=== PATIENT | female | born 1935 | race Caucasian/White ===

== ENCOUNTER 2020-07-08 15:06 | Emergency (ER) | payer MEDICARE ==
[2020-07-08 15:34] LABS: BASOPHILS # (AUTO) 0.1 10^3/uL (0.0-0.1); BASOPHILS % (AUTO) 0.8 %; EOSINOPHILS # (AUTO) 0.3 10^3/uL (0.0-0.7); EOSINOPHILS % (AUTO) 3.2 %; HGB - HEMOGLOBIN 13.6 g/dL (12.0-16.0); LYMPHOCYTES # (AUTO) 2.5 10^3/uL (1.5-3.5); LYMPHOCYTES % (AUTO) 31.9 %; MEAN CORPUSCULAR HEMOGLOBIN 32.3 pg (27.0-31.0); MEAN CORPUSCULAR HGB CONC 33.5 g/dL (32.0-36.0); MEAN CORPUSCULAR VOLUME 96.4 fL (81.0-99.0); MEAN PLATELET VOLUME 10.4 fL (7.9-10.8); MONOCYTES # (AUTO) 0.6 10^3/uL (0.0-1.0); NEUTROPHILS # (AUTO) 4.3 10^3/uL (1.5-6.6); PLT - PLATELET COUNT 192 10^3/uL (130-450); RED BLOOD COUNT 4.21 10^6/uL (4.20-5.40); RED CELL DISTRIBUTION WIDTH 12.8 % (12.0-15.0); WHITE BLOOD COUNT 7.7 x10^3/uL (4.8-10.8)
[2020-07-08 15:51] LABS: ALBUMIN 3.8 g/dL (3.2-5.5); BILIRUBIN,TOTAL 0.5 mg/dL (0.2-1.0); CALCIUM 9.4 mg/dL (8.5-10.3); CREATININE 0.7 mg/dL (0.4-1.0); TOTAL PROTEIN 7.7 g/dL (6.7-8.2)
[2020-07-08] MEDS ORDERED: atenoloL 25 MG TABLET PO STA (16:05)
--- NOTE | 2020-07-08 16:08 | XRAY Report ---
PROCEDURE: Chest 1 View X-Ray INDICATIONS: Chest Pain TECHNIQUE: One view of the chest was acquired. COMPARISON: FINDINGS: Surgical changes and devices: Surgical clips right breast area. Lungs and pleura: No pleural effusions or pneumothorax. Lungs are edematous. Mediastinum: Mediastinal contours appear normal. Heart size is at the upper limits of normal. Bones and chest wall: No suspicious bony lesions. Overlying soft tissues appear unremarkable. IMPRESSION: Mild pulmonary edema pattern however the inspiratory volume is reduced and this may simply represent crowding of the bronchovascular markings. Please correlate for presence of pulmonary edema in this pa tient. Note is made of surgical clips suggestive of prior right-sided breast carcinoma intervention. Reviewed by: Bravo Little MD on 07/08/2020 4:06 PM PDT Approved by: Bravo Little MD on 07/08/2020 4:06 PM PDT Station ID: [id number]
--- NOTE | 2020-07-08 16:08 | ED Physician Documentation ---
History of Present Illness - Stated complaint Stated Complaint: CHEST PX - Chief complaint Chief Complaint: Cardiac - Additonal information Additional information: 84-year-old female presents to the emergency department for evaluation of chest pain. She reports that the chest pain was sharp substernal and non-radiating. She denies that she has chest pain right now and is unsure of how long it lasted. She denies that with her episode of chest pain she is having any radiation of the pain, nausea, diaphoresis. She denies that we she was short of breath. Initially when she presented she was quite frustrated with the nursing staff, upset that her daughter forced her to come here. Denies syncope, leg swelling, abdominal pain, n/v/d. no dysuria She does have a history of hypertension. She takes atenolol 50 mg daily. She has not taken this a.m. dose. I do clay fairly elevated blood pressures here in the emergency department with a systolic of 220/80. Her daughter reports that she typically will have a blood pressure in the 1 90-200 systolic range. At some point in the past perhaps 5 or more years ago she did have a stress test completed through a cardiology group in [place]. Patient is unsure what those results were. Review of Systems Constitutional: denies: Fever Eyes: reports: Reviewed and negative Ears: reports: Reviewed and negative Nose: reports: Reviewed and negative Throat: reports: Reviewed and negative Cardiac: reports: Chest pain / pressure. 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 - Past Surgical History Past Surgical History: Yes /INSIDE SALES ADVERTISING EXECUTIVE: Mastectomy - Present Medications Home Medications: Ambulatory Orders Medication Instructions Recorded Confirmed Lisinopril [Prinivil] 10 mg PO DAILY #30 tablet 07/08/20 - Allergies Allergies/Adverse Reactions: Allergies Allergy/AdvReac Type Severity Reaction Status Date / Time No Known Drug Allergies Allergy Verified 07/08/20 15:27 - Social History Does the pt smoke?: No Smoking Status: Never smoker - Immunizations Immunizations are current?: Yes PD ED PE EXPANDED - General General: Alert, Anxious - HEENT HEENT: Atraumatic, PERRL - Neck Neck: Supple w/out meningeal sx, No tenderness. No: Stiff neck, Brudzinki's, JV D present, Adenopathy, Thyroid enlarged / mass - Cardiac Cardiac: Regular Rate, Regular Rhythm, Murmur Present (4/6 systolic murmur), Radial strong equal, Pedal strong equal, Cap refill < 2 sec - Respiratory Respiratory: Clear to ausultation flaquita. No: Distress, Labored - Abdomen Abdomen: Normal Bowel sounds. No: Tender to palpation - Extremities Extremities: Normal - Neuro Neuro: Alert and Oriented X 3, CNII-XII intact, Normal gait, Normal finger nose, Normal speech - GCS Eye Opening: Spontaneous Motor: Obeys Commands Verbal: Oriented Total: 15 - Psych Psych: Normal Results - Vitals Vitals: Vital Signs - 24 hr 07/08/20 07/08/20 07/08/20 15:28 16:00 16:30 Temperature 37.1 C Heart Rate 73 62 59 L Respiratory 18 23 18 Rate Blood Pressure 212/73 H 227/98 H 199/83 H O2 Saturation 100 97 98 Oxygen O2 Source Room air - EKG (time done) 1518 Rate: Rate (enter#) (69) Rhythm: NSR Intervals: Prolonged [place] QRS: LVH Ischemia: Non specific changes Other comments: Other comments (Qtc 433) Compare to prior EKG: Old EKG unavailable Computer interpretation: Agree with computer - Labs Labs: Laboratory Tests 07/08/20 07/08/20 07/08/20 15:28 15:28 15:28 WBC 7.7 RBC 4.21 Hgb 13.6 Hct 40.6 MCV 96.4 MCH 32.3 H MCHC 33.5 RDW 12.8 Plt Count 192 MPV 10.4 Neut # (Auto) 4.3 Lymph # (Auto) 2.5 [place] # (Auto) 0.6 Eos # (Auto) 0.3 Baso # (Auto) 0.1 Absolute Nucleated RBC 0.00 Nucleated RBC % 0.0 Sodium 138 Potassium 3.8 Chloride 102 Carbon Dioxide 26 Anion Gap 10.0 BUN 24 H Creatinine 0.7 Estimated GFR (MDRD) 80 L Glucose 134 H Calcium 9.4 Total Bilirubin 0.5 AST 18 ALT 15 Alkaline Phosphatase 68 Troponin I High Sens 10.7 B-Natriuretic Peptide Total Protein 7.7 Albumin 3.8 Globulin 3.9 Albumin/Globulin Ratio 1.0 Lipase 20 L TSH Urine Color Urine Clarity Urine pH Ur Specific [place] Urine Protein Urine Glucose (UA) Urine Ketones Urine Occult Blood Urine Nitrite Urine Bilirubin Urine Urobilinogen Ur Leukocyte Esterase Ur Microscopic Review Urine Culture Comments 07/08/20 07/08/20 07/08/20 15:28 15:28 15:51 WBC RBC Hgb Hct MCV MCH MCHC RDW Plt Count MPV Neut # (Auto) Lymph # (Auto) [place] # (Auto) Eos # (Auto) Baso # (Auto) Absolute Nucleated RBC Nucleated RBC % Sodium Potassium Chloride Carbon Dioxide Anion Gap BUN Creatinine Estimated GFR (MDRD) Glucose Calcium Total Bilirubin AST ALT Alkaline Phosphatase Troponin I High Sens B-Natriuretic Peptide 275 H Total Protein Albumin Globulin Albumin/Globulin Ratio Lipase TSH 2.13 Urine Color YELLOW Urine Clarity CLEAR Urine pH 6.5 Ur Specific [place] 1.010 Urine Protein NEGATIVE Urine Glucose (UA) NEGATIVE Urine Ketones NEGATIVE Urine Occult Blood NEGATIVE Urine Nitrite NEGATIVE Urine Bilirubin NEGATIVE Urine Urobilinogen 0.2 (NORMAL) Ur Leukocyte Esterase NEGATIVE Ur Microscopic Review NOT INDICATED Urine Culture Comments NOT INDICATED - Rads (name of study) CXR Radiology: Final report received (Mild pulmonary edema pattern however the inspiratory volume is reduced and this may simply represent crowding of the broncho-vascular markings.) PD MEDICAL DECISION MAKING - ED course Complexity details: reviewed results, re-evaluated patient, considered differ ential, d/w patient, d/w family ED course: 84-year-old female presents the emergency department for evaluation of substernal chest pain that developed earlier this morning. At the time of presentation to the emergency department she is pain-free. She has been quite resistant to remaining in the department, often getting upset and yelling at her daughter and threatening to the ER staff to leave. Her EKG was nonischemic. High-sensitivity troponin was negative. She was initially given aspirin here in the emergency department. We do note an elevated blood pressure. Her daughter reports that her systolic blood pressures are typically greater than 190 or 200. I have discussed this case at length with both the patient and the daughter. The patient is adamant that she will not remain in the hospital. Therefore I will add lisinopril to her blood pressure medication if she is only taking atenolol. I have also advised very close follow-up with a mobile paint specialist. Patient is to return to the emergency department for further evaluation if her symptoms worsen and she agreed to do so. Departure - Departure Disposition: Home, Self Care Clinical Impression: Chest pain Qualifiers: Chest pain type: unspecified Qualified Code(s): R07.9 - Chest pain, unspecified Hypertension Qualifiers: Hypertension type: essential hypertension Qualified Code(s): I10 - Essential (primary) hypertension Condition: Stable Record reviewed to determine appropriate education?: Yes Instructions: ED Heart Disease Risk Factors Follow-Up: Matt Jane DO [Primary Care Provider] - Within 3 Days Prescriptions: Lisinopril [Prinivil] 10 mg PO DAILY #30 tablet Comments: Crystal I hope that you are feeling better soon. Your EKG today did not show signs that you are having a heart attack. Your labs were also essentially normal. However with your history of high blood pressure you are at very high risk for heart disease or having a heart attack. I am starting you on a new medication to control your blood pressure, lisinopril. Please take this each night. It is very important that you follow-up with your primary doctor within the next 3 days to a week. If you develop chest pain again you must return to the emergency department.
[2020-07-08] MEDS ORDERED: ASPIRIN CHEW 81 MG TABLET PO STA (16:10)
[2020-07-08 16:19] LABS: BILIRUBIN,URINE NEGATIVE (NEGATIVE); GLUCOSE, URINE (UA) NEGATIVE (NEGATIVE); KETONES,URINE (UA) NEGATIVE (NEGATIVE); LEUKOCYTE ESTERASE, URINE NEGATIVE (NEGATIVE); NITRITE,URINE NEGATIVE (NEGATIVE); OCCULT BLOOD,URINE NEGATIVE (NEGATIVE); PH,URINE 6.5 PH (5.0-7.5); PROTEIN,URINE NEGATIVE (NEGATIVE); UROBILINOGEN,URINE 0.2 (NORMAL) E.U./dL (NORMAL)
[2020-07-08 16:22] LABS: CLARITY,URINE CLEAR (CLEAR)
[2020-07-08 17:30] VITALS: BP 200/125
[2020-07-08] MEDS ORDERED: lisinopriL 5 MG TABLET PO STA (17:31)
== END 2020-07-08 17:54 | disposition home or self-care (01) ==
LOC: ED 15:06
DX: R07.9 Chest pain, unspecified (principal); I10 Essential (primary) hypertension
CPT/HCPCS: 36415; 71045; 80053; 81003; 83690; 83880; 84443; 84484; 85025; 93005; 99284; A9270; 81001; 87086

== ENCOUNTER 2020-09-29 21:10 | Emergency (ER) | payer MEDICARE, OTHER ==
--- NOTE | 2020-09-29 22:10 | ED Physician Documentation ---
PD HPI CHEST PAIN - Stated complaint Stated Complaint: CHEST PX, HIGH BP - Chief complaint Chief Complaint: Cardiac - History obtained from History obtained from: Patient, Family - History of Present Illness Timing - onset: Today Timing - onset during: Rest Timing - duration: Hours Timing - details: Abrupt onset, Now resolved Quality: Pressure Location: Substernal, Left chest Worsened by: Exertion Similar symptoms before: Diagnosis (hypertension) Recently seen: Emergency Dept - Additional information Additional information: 85-year-old female with history of hypertension is on atenolol and lisinopril and she is recently been seen in the emerge department for a spike in her blood pressure and she was started on lisinopril at that time. She brings in her bottles of pill today and it indicates that she has not taken either of her medications for several days. Her daughter has given her her medications this evening prior to coming to the emergency department and the patient is currently asymptomatic and blood pressure is running much improved. The patient readily admits that she is having some difficulty remembering to take her medications and she has given into the daughter giving her her medications. Review of Systems Constitutional: denies: Fever Eyes: denies: Decreased vision Ears: denies: Ear pain Nose: denies: Congestion Throat: denies: Sore throat Cardiac: reports: Chest pain / pressure. 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 MACHINE TENDER: Mastectomy - Present Medications Home Medications: Ambulatory Orders Medication Instructions Recorded Confirmed Lisinopril [Prinivil] 10 mg PO DAILY #30 tablet 07/08/20 09/29/20 Atenolol [Tenormin] 50 mg PO DAILY 09/29/20 09/29/20 Nitrofurantoin [Macrobid] 100 mg PO BID #14 capsule 09/30/20 - Allergies Allergies/Adverse Reactions: Allergies Allergy/AdvReac Type Severity Reaction Status Date / Time soy Allergy Unknown Verified 09/29/20 21:46 - Social History Does the pt smoke?: No Smoking Status: Never smoker - Immunizations Immunizations are current?: Yes PD ED PE NORMAL - Vitals Vital signs reviewed: Yes (hypertensive mild) - General General: No acute distress, Well developed/nourished - HEENT HEENT: Atraumatic, PERRL, EOMI - Neck Neck: Supple, no meningeal sign, No bony TTP - Cardiac Cardiac: RRR, Other (1/6 holosystolic murmer at LSB) - Respiratory Respiratory: No respiratory distress, Clear bilaterally - Abdomen Abdomen: Soft, Non tender - Back Back: No CVA TTP, No spinal TTP - Derm Derm: Normal color, Warm and dry, No rash - Extremities Extremities: No deformity, No edema - Neuro Neuro: hot dip plater 2-12 intact, No motor deficit, No sensory deficit, Normal speech Eye Opening: Spontaneous Motor: Obeys Commands Verbal: Oriented GCS Score: 15 - Psych Psych: Normal mood, Normal affect Results - Vitals Vitals: Vital Signs - 24 hr 09/29/20 09/29/20 09/29/20 21:40 21:49 23:53 Temperature 36.4 C L 36 C L Heart Rate 90 89 62 Respiratory 12 21 23 Rate Blood Pressure 168/95 H 229/104 H O2 Saturation 97 98 09/30/20 01:55 Temperature Heart Rate 67 Respiratory Rate Blood Pressure 156/85 H O2 Saturation 98 Oxygen O2 Source Room air - EKG (time done) 2138 Rate: Rate (enter#) (90) Rhythm: LAE QRS: LVH Ischemia: ST depression (consistent with strain pattern with LVH) Compare to prior EKG: Changed from prior EKG (SPT 09-08-2020 the rate is faster and the strain pattern with LVH has developed ) Computer interpretation: Disagree with computer (The computer indicates poor R wave progression. There is an R wave in V1. ) - Labs Labs: Laboratory Tests 09/29/20 09/29/20 09/29/20 22:27 22:29 22:29 WBC 9.4 RBC 4.44 Hgb 14.4 Hct 43.0 MCV 96.8 MCH 32.4 H MCHC 33.5 RDW 12.8 Plt Count 198 MPV 10.7 Neut # (Auto) 6.2 Lymph # (Auto) 2.4 [place] # (Auto) 0.7 Eos # (Auto) 0.2 Baso # (Auto) 0.1 Absolute Nucleated RBC 0.00 Nucleated RBC % 0.0 Sodium 138 Potassium 3.6 Chloride 103 Carbon Dioxide 25 Anion Gap 10.0 BUN 24 H Creatinine 0.9 Estimated GFR (MDRD) 60 L Glucose 168 H Calcium 9.6 Total Bilirubin 0.6 AST 22 ALT 16 Alkaline Phosphatase 61 Troponin I High Sens B-Natriuretic Peptide Total Protein 7.9 Albumin 4.3 Globulin 3.6 Albumin/Globulin Ratio 1.2 Lipase 18 L Urine Color YELLOW Urine Clarity [place] Urine pH 5.0 Ur Specific [place] 1.020 Urine Protein TRACE Urine Glucose (UA) 100 H Urine Ketones NEGATIVE Urine Occult Blood TRACE-INTA Urine Nitrite NEGATIVE Urine Bilirubin NEGATIVE Urine Urobilinogen 0.2 (NORMAL) Ur Leukocyte Esterase SMALL H Urine RBC 0-5 Urine WBC 11-25 H Ur Squamous Epith Cells RARE Squamous Urine Bacteria Few Ur Microscopic Review INDICATED Urine Culture Comments INDICATED 09/29/20 09/29/20 09/30/20: 22: 00:40 WBC RBC Hgb Hct MCV MCH MCHC RDW Plt Count MPV Neut # (Auto) Lymph # (Auto) [place] # (Auto) Eos # (Auto) Baso # (Auto) Absolute Nucleated RBC Nucleated RBC % Sodium Potassium Chloride Carbon Dioxide Anion Gap BUN Creatinine Estimated GFR (MDRD) Glucose Calcium Total Bilirubin AST ALT Alkaline Phosphatase Troponin I High Sens 55.7 H* 151.3 H* B-Natriuretic Peptide 103 H Total Protein Albumin Globulin Albumin/Globulin Ratio Lipase Urine Color Urine Clarity Urine pH Ur Specific [place] Urine Protein Urine Glucose (UA) Urine Ketones Urine Occult Blood Urine Nitrite Urine Bilirubin Urine Urobilinogen Ur Leukocyte Esterase Urine RBC Urine WBC Ur Squamous Epith Cells Urine Bacteria Ur Microscopic Review Urine Culture Comments - Rads (name of study) chest Radiology: Prelim report reviewed (Impression: No focal consolidation or CHF. There is increased opacity in the right paratracheal region that may be incid ental but is not definitely seen previously and technically indeterminate. Recommend further evaluation or short-term follow-up.), EMP read indepedently, See rad report Procedures - IVC sono (time) 2200 Bedside IVC sono: IVC measures (cm) (0.90), IVC collapsed c insp (cm) (complete), Dehydration (est 1-2 liter deficit) PD MEDICAL DECISION MAKING - ED course Complexity details: d/w family (The patient's daughter specifically indicates that she was given her lisinopril tonight and she was not given her Atenolol from earlier in the day.) ED course: 85-year-old female who has been noncompliant with her blood pressure medications comes to the emergency department today with a spike in her blood pressure and chest pain. She has a pattern of strain with LVH on her electrocardiogram and she is administered the missing dose of Atenolol 50 mg. This patient's chest pain lasted about 1-1/2 hours resolved about the time she arrived to the hospital and has not recurred since she has been here in the emergency department. Chest x-ray was obtained and demonstrated an opacity in the right paratracheal region and recommendation was to have further investigation or short-term follow-up. I offered to do a chest CT of the patient and she refused. She wanted to sign out AGAINST MEDICAL ADVICE at that point. I did indicate to her that her troponin was mildly elevated and this value should be checked a second time. She was reluctant to allow this as well but we were able to get the patient's daughter to come back to the emergency department despite our Covid restrictions. The patient has decided that she would like to go home despite the fact that she has rising troponin indicating some damage. Clinically the patient looks well and is not having symptoms and the clinical etiology for her troponin elevation is present. She has been noncompliant with her blood pressure medications and has had a spike in her blood pressure. Her daughter will be administering her blood pressure medications now. I did ask Dr. De La Fuente to come talk to the patient about benefits of hospitalization. After a long discussion with the patient and her daughter the patient will still go home. She appears competent to make this decision. There is an additional finding on CT that would normally be followed up and the patient has refused imaging. She has UTI by urinalysis and no symptoms. Her urine did make the grade for culture and she is given a script for macrobid and will follow up with the results of the culture to determine if treatment is indicated. Departure - Departure Disposition: 01 Home, Self Care Clinical Impression: Hypertensive urgency, NSTEMI (non-ST elevated myocardial infarction) Urinary tract infection Qualifiers: Urinary tract infection type: acute cystitis Hematuria presence: without hematuria Qualified Code(s): N30.00 - Acute cystitis without hematuria Condition: Stable Instructions: Back Home, Beta-Blockers, ED Hypertension Conf Out Of Control, ED UTI Cystitis Female Follow-Up: Matt Jane, DO [Provider Admit Priv/Credential] - Prescriptions: Nitrofurantoin [Macrobid] 100 mg PO BID #14 capsule Comments: Today it appears that your blood pressure was extremely elevated causing a bit of damage to your heart. It is important to take your blood pressure medicat ions regularly and not miss doses. Make certain you take your regular dose tomorrow.If you develop any new or different symptoms and request any treatment we are here 24 hours a day every day.
[2020-09-29] MEDS ORDERED: SODIUM CHLORIDE 0.9% 1,000 ML IV STA (22:14)
[2020-09-29 22:31] LABS: BILIRUBIN,URINE NEGATIVE (NEGATIVE); GLUCOSE, URINE (UA) 100 mg/dL (NEGATIVE); KETONES,URINE (UA) NEGATIVE (NEGATIVE); LEUKOCYTE ESTERASE, URINE SMALL (NEGATIVE); NITRITE,URINE NEGATIVE (NEGATIVE); OCCULT BLOOD,URINE TRACE-INTA (NEGATIVE); PROTEIN,URINE TRACE mg/dL (NEGATIVE); UROBILINOGEN,URINE 0.2 (NORMAL) E.U./dL (NORMAL)
[2020-09-29 22:37] LABS: CLARITY,URINE HAZY (CLEAR)
[2020-09-29 22:48] LABS: BACTERIA,URINE Few /HPF (None Seen); RBC,URINE 0-5 /HPF (0-5); SQUAMOUS EPITHELIAL CELL,UR RARE Squamous (<= Few)
[2020-09-29 22:53] LABS: BASOPHILS # (AUTO) 0.1 10^3/uL (0.0-0.1); BASOPHILS % (AUTO) 0.6 %; EOSINOPHILS # (AUTO) 0.2 10^3/uL (0.0-0.7); EOSINOPHILS % (AUTO) 1.7 %; HGB - HEMOGLOBIN 14.4 g/dL (12.0-16.0); LYMPHOCYTES # (AUTO) 2.4 10^3/uL (1.5-3.5); LYMPHOCYTES % (AUTO) 25.2 %; MEAN CORPUSCULAR HEMOGLOBIN 32.4 pg (27.0-31.0); MEAN CORPUSCULAR HGB CONC 33.5 g/dL (32.0-36.0); MEAN CORPUSCULAR VOLUME 96.8 fL (81.0-99.0); MEAN PLATELET VOLUME 10.7 fL (7.9-10.8); MONOCYTES # (AUTO) 0.7 10^3/uL (0.0-1.0); NEUTROPHILS # (AUTO) 6.2 10^3/uL (1.5-6.6); NEUTROPHILS % (AUTO) 65.4 %; PLT - PLATELET COUNT 198 10^3/uL (130-450); RED BLOOD COUNT 4.44 10^6/uL (4.20-5.40); RED CELL DISTRIBUTION WIDTH 12.8 % (12.0-15.0); WHITE BLOOD COUNT 9.4 x10^3/uL (4.8-10.8)
[2020-09-29 23:06] LABS: ALBUMIN 4.3 g/dL (3.2-5.5); ALBUMIN/GLOBULIN RATIO 1.2 (1.0-2.2); BILIRUBIN,TOTAL 0.6 mg/dL (0.2-1.0); CALCIUM 9.6 mg/dL (8.5-10.3); CREATININE 0.9 mg/dL (0.4-1.0); POTASSIUM 3.6 mmol/L (3.5-5.0); TOTAL PROTEIN 7.9 g/dL (6.7-8.2)
[2020-09-29] MEDS ORDERED: IOVERSOL 320 100 ML VIAL IVP ONE (23:18)
[2020-09-30 01:56] VITALS: BP 156/85
--- NOTE | 2020-09-30 08:22 | XRAY Report ---
PROCEDURE: Chest 1 View X-Ray INDICATIONS: chest pain TECHNIQUE: One view of the chest was acquired. COMPARISON: 07/08/2020 FINDINGS: Surgical changes and devices: Surgical clips are again seen in right axilla and right breast. Lungs and pleura: No pleural effusions or pneumothorax. Increased opacity in right paratracheal skyler on is seen slightly more prominent compared to previous study. Increased bronchovascular markings in the right perihilar region is also noted. Left lung is clear. Mediastinum: Mediastinal contours appear normal. Heart size is enlarged. Bones and chest wall: No suspicious bony lesions. Overlying soft tissues appear unremarkable. IMPRESSION: Increased opacity in the right perihilar/supraclavicular region and appears slightly more prominent c ompared to previous study. A right upper lobe infiltrate versus neoplastic process cannot be excluded . Consider CT of chest for further evaluation of this region as an outpatient. Reviewed by: Jez Chance MD on 09/30/2020 8:21 AM PST Approved by: Jez Chance MD on 09/30/2020 8:21 AM PST Station ID: [id number]
--- NOTE | 2020-10-01 00:01 | ADVANCE CARE PLANNING NOTE ---
Advance Care Planning - Planning Encounter Date: 09/30/20 Time: 02:00 Purpose: establish care goals in face of positive troponins Parties in Attendance: Daughter, patient and hospitalist Decisional Capacity of the Patient: alert, oriented and daughter reluctantly endorses normal mentation - Encounter Subjective/Patient's Story: She is an 85-year-old white female who survived breast cancer after undergoing mastectomy. She also has high blood pressure and high cholesterol. She lives with her daughter, and daughter's children. She describes her life with them as a very good life. She loves them very much. She has daily encounters with her grandchildren that she finds fulfilling and enjoyable. She has lived with her daughter for quite some time now. She denies being depressed. She is able to do her activities of daily living. She dresses herself, feed herself, and does not use any durable medical equipment. She describes a life that is satisfying to her. She likes seeing her friends, and looks forward to seeing her grandson, Sergey, get to his girlfriend Dwaine. She thinks Dwaine is the best thing that happened to the family in quite some time and, to top it off, she makes a wonderful banana bread. She is responsible for taking her own medications. For the last few months, she will forget to take her pills. She does not feel like she is losing her memory. She just "gets lazy". She denies being suicidal, depressed, sad. She has a good appetite. Denies feeling poorly. She was seen for chest pain in July 2020. This was in our emergency room. She had forgotten to take her blood pressure pills and came in with chest pain and a markedly elevated blood pressure. She had a previous history of a stress test done through cardiology group in [place] about 2014 which was negative. At that point in time she was reluctantly willing to undergo evaluation but did not want to be there. She was described as yelling at her daughter back then. Troponins were 10.7 with the elevated blood pressure. Patient was adamant she did not want to be in the hospital and she went home. She now returns tonight with the same problem. She has not been taking her medications for no real reason other than "laziness". She had an abrupt onset of chest pain. It was substernal and on the left side. Made worse by walking around. She took her blood pressure pills, and an old bottle of aspirin was available so she took an old aspirin. By the time she got to the emergency room she was pain-free. This time her troponins are elevated. She was 55.7 in the next 1 was 151.3. She is adamant that she does not want to be in the hospital. Which then led to Dr. Mosquera having me come speak to the patient to give a second opinion. She states that she is 85 years old and that she really does not want to undergo any types of procedures. As such she sees no point in coming into the hospital. Daughter is upset. Almost in tears. Tells mom that she would really like her to come to the hospital to make sure she is not having a heart attack. The patient points out that even if she was she would not undergo stress test, angiogram, or bypass surgery or stenting. She feels that she is lived a good life. She loves her family and grandchildren but does not feel that undergoing procedures to live a longer life is worth it. Daughter points out that she has relatives that are in their 90s, and even her best friend, Yandel, had cardiac intervention and is living a fulfilling life. The patient is not swayed. She states that that is all well in good but that that has not applied to her. We then went into conversations about what other things that she would not want done. I postulated that if she had pneumonia and she needed oxygen and antibiotics for that, which she come in? The answer was no. If she fell and broke her hip, which she come in? She states no. She wants to focus on comfort measures only. She wants to stay at home if she ever were to get sick enough to . 40 minutes was spent in a long conversation establishing her philosophy. Unfortunately her daughter is in disagreement with her. Is in tears. Wishes that mom would reconsider. Objective/Medical Story: 85-year-old white female who has hypertension, hyperlipidemia, and is noncompliant with medications. Presents with a second episode of angina similar to her previous episode from July 2020. She will get elevated blood pressure, chest pain, and once that the pressure is down, chest pain resolves. The difference from this episode to the last episode is a rise in troponins. EKG is negative. The patient is now symptom-free in the emergency room. Blood pressure is 156/85. Afebrile. 98% on room air. She is an alert, oriented, elderly female in no acute distress. Exam is essentially negative for cardiopulmonary problems. Emergency room physician is recommending observation status for rule out OH. Patient is declining. Goals of Care: 1. To never be hospitalized as an observation or inpatient. She does not want surgeries, intubations, any type of procedures. 2. To at home. Plan: 1. We discussed DNR status and she wants to be DO NOT RESUSCITATE DO NOT INTUBATE. 2. I have asked her, for consideration of her children's emotional wellbeing, to have a discussion with all family members. She has 3 children total. All of them should be aware of her philosophical desires. What is the practical ways that they can make this happen to honor their mother but also not be overwhelmed at the moment of her . As such she promises to sit down and have those conversations with her kids. Figure out if she should be in palliative care. She is not a candidate for hospice. 3. Let her primary care provider know that she feels this way Code Status: Do Not Attempt Resuscitation Time spent on advance care plannin minutes
== END 2020-09-30 02:21 | disposition home or self-care (01) ==
LOC: ED 21:10
DX: I21.4 Non-ST elevation (NSTEMI) myocardial infarction (principal); I16.0 Hypertensive urgency; T46.4X6A Underdosing of angiotensin-converting-enzyme inhibitors, initial encounter; T44.7X6A Underdosing of beta-adrenoreceptor antagonists, initial encounter; Z91.138 Patient's unintentional underdosing of medication regimen for other reason; Y92.009 Unspecified place in unspecified non-institutional (private) residence as the place of occurrence of the external cause; N30.00 Acute cystitis without hematuria; E86.0 Dehydration; R93.89 Abnormal findings on diagnostic imaging of other specified body structures; R01.1 Cardiac murmur, unspecified; E78.5 Hyperlipidemia, unspecified; Z08 Encounter for follow-up examination after completed treatment for malignant neoplasm; Z85.3 Personal history of malignant neoplasm of breast; Z53.29 Procedure and treatment not carried out because of patient's decision for other reasons; Z66 Do not resuscitate
CPT/HCPCS: 36415; 80053; 81001; 81003; 83690; 83880; 84484; 85025; 87086; 93005; 96360; 99284

== ENCOUNTER 2020-10-01 12:25 | Outpatient (CLI) | payer MEDICARE, OTHER | END 2020-10-01 23:59 | disposition home or self-care (01) | LOC: LAB.N 12:25 | PROVIDERS: ATTEND Family Medicine | DX: R10.9 Unspecified abdominal pain (principal) | CPT/HCPCS: 87086 ==

== ENCOUNTER 2020-10-05 16:04 | Emergency (ER) | payer MEDICARE, OTHER ==
--- NOTE | 2020-10-05 16:47 | ED Physician Documentation ---
PD HPI BACK PAIN - Stated complaint Stated Complaint: BACK PX - Chief complaint Chief Complaint: Back Pain - History obtained from History obtained from: Patient, Family - Additional information Additional information: 85-year-old woman with history of hypertension has had about a weeks worth of right flank pain and right lateral abdominal pain, otherwise not lateralizing. She was diagnosed with UTI, culture grew antimicrobial polymicrobial growth. No improvement with antibiotics. Pain worse today. No injury. 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 AND SOIL SCIENTIST: Mastectomy - Present Medications Home Medications: Ambulatory Orders Medication Instructions Recorded Confirmed Lisinopril [Prinivil] 10 mg PO DAILY #30 tablet 07/08/20 09/29/20 Atenolol [Tenormin] 50 mg PO DAILY 09/29/20 09/29/20 Nitrofurantoin [Macrobid] 100 mg PO BID #14 capsule 09/30/20 Gabapentin [Neurontin] 100 mg PO TID PRN #60 tab 10/05/20 predniSONE [Deltasone] 20 mg PO [id number] #21 tab 10/05/20 - Allergies Allergies/Adverse Reactions: Allergies Allergy/AdvReac Type Severity Reaction Status Date / Time soy Allergy Unknown Verified 10/05/20 16:26 - Social History Does the pt smoke?: No Smoking Status: Never smoker Does the pt drink ETOH?: No Does the pt have substance abuse?: No - Immunizations Immunizations are current?: Yes PD ED PE NORMAL - Vitals Vital signs reviewed: Yes - General General: Alert and oriented X 3, No acute distress - HEENT HEENT: PERRL, EOMI - Neck Neck: Supple, no meningeal sign, No bony TTP - Cardiac Cardiac: RRR, No murmur - Respiratory Respiratory: No respiratory distress, Clear bilaterally - Abdomen Abdomen: Non tender - Extremities Extremities: Other (Pain is not reproducible with palpation of the flank, midline spine, ribs, or pelvis.) - Neuro Neuro: Alert and oriented X 3, Normal speech Results - Vitals Vitals: Vital Signs - 24 hr 10/05/20 10/05/20 10/05/20 16:21 19:43 20:15 Temperature 36.1 C L 36.4 C L 36.9 C Heart Rate 56 L 52 L 55 L Respiratory 16 16 14 Rate Blood Pressure 219/94 H 217/76 H 217/76 H O2 Saturation 93 99 98 Oxygen O2 Source Room air - Labs Labs: Laboratory Tests 10/05/20 10/05/20 10/05/20 17:00 17:00 19:29 WBC 9.1 RBC 4.56 Hgb 14.6 Hct 43.8 MCV 96.1 MCH 32.0 H MCHC 33.3 RDW 12.9 Plt Count 209 MPV 10.5 Neut # (Auto) 6.0 Lymph # (Auto) 2.3 [place] # (Auto) 0.6 Eos # (Auto) 0.2 Baso # (Auto) 0.1 Absolute Nucleated RBC 0.00 Nucleated RBC % 0.0 Sodium 137 Potassium 4.0 Chloride 99 L Carbon Dioxide 28 Anion Gap 10.0 BUN 25 H Creatinine 0.7 Estimated GFR (MDRD) 80 L Glucose 145 H Calcium 10.7 H Total Bilirubin 0.7 AST 20 ALT 15 Alkaline Phosphatase 67 Total Protein 8.6 H Albumin 4.5 Globulin 4.1 Albumin/Globulin Ratio 1.1 Lipase 18 L Urine Color YELLOW Urine Clarity CLEAR Urine pH 6.5 Ur Specific [place] <=1.005 Urine Protein NEGATIVE Urine Glucose (UA) NEGATIVE Urine Ketones NEGATIVE Urine Occult Blood NEGATIVE Urine Nitrite NEGATIVE Urine Bilirubin NEGATIVE Urine Urobilinogen 0.2 (NORMAL) Ur Leukocyte Esterase NEGATIVE Ur Microscopic Review NOT INDICATED Urine Culture Comments NOT INDICATED - Rads (name of study) CT angiography of the abdomen pelvis with IV contrast Radiology: EMP read contemporaneously (Moderate calcified atherosclerotic plaque without dissection or aneurysm. No kidney stones or hydronephrosis. She has diverticulosis. Advanced DDD at L1-L2 without compression fracture. Scoliosis. Degenerative hip disease.) PD MEDICAL DECISION MAKING - ED course ED course: 85-year-old woman with right flank pain, previous diagnosis of UTI but clear UA today and no improvement on antibiotics. Given her age the differential diagnosis would also include vascular emergencies, renal colic, or simple low back pain. Work-up demonstrates severe degenerative disc disease L1-L2 which may be causative. The remainder of her work-up was negative. Departure - Departure Disposition: 01 Home, Self Care Clinical Impression: Back pain Qualifiers: Back pain location: low back pain Chronicity: acute Back pain laterality: right Sciatica presence: without sciatica Qualified Code(s): M54.5 - Low back pain Condition: Good Record reviewed to determine appropriate education?: Yes Instructions: ED Neck Back Pain General Prescriptions: predniSONE [Deltasone] 20 mg PO [id number] #21 tab Gabapentin [Neurontin] 100 mg PO TID PRN #60 tab PRN Reason: back pain Comments: Followup with Dr Lucinda SALGUERO. Return if worse Do not drink or drive with gabapentin CT showing severe Degenerative disc disease at L1-L2 Discharge Date/Time: 10/05/20 20:15
[2020-10-05 17:13] LABS: BASOPHILS # (AUTO) 0.1 10^3/uL (0.0-0.1); BASOPHILS % (AUTO) 0.7 %; EOSINOPHILS # (AUTO) 0.2 10^3/uL (0.0-0.7); EOSINOPHILS % (AUTO) 1.8 %; HCT - HEMATOCRIT 43.8 % (37.0-47.0); HGB - HEMOGLOBIN 14.6 g/dL (12.0-16.0); LYMPHOCYTES # (AUTO) 2.3 10^3/uL (1.5-3.5); MEAN CORPUSCULAR HGB CONC 33.3 g/dL (32.0-36.0); MEAN CORPUSCULAR VOLUME 96.1 fL (81.0-99.0); MEAN PLATELET VOLUME 10.5 fL (7.9-10.8); MONOCYTES # (AUTO) 0.6 10^3/uL (0.0-1.0); MONOCYTES % (AUTO) 6.6 %; NEUTROPHILS % (AUTO) 65.7 %; PLT - PLATELET COUNT 209 10^3/uL (130-450); RED BLOOD COUNT 4.56 10^6/uL (4.20-5.40); RED CELL DISTRIBUTION WIDTH 12.9 % (12.0-15.0); WHITE BLOOD COUNT 9.1 x10^3/uL (4.8-10.8)
[2020-10-05] MEDS ORDERED: IOVERSOL 320 100 ML VIAL IVP ONE ×2 (17:18→18:21)
[2020-10-05 17:23] LABS: ALBUMIN 4.5 g/dL (3.2-5.5); ALBUMIN/GLOBULIN RATIO 1.1 (1.0-2.2); BILIRUBIN,TOTAL 0.7 mg/dL (0.2-1.0); CALCIUM 10.7 mg/dL (8.5-10.3); CREATININE 0.7 mg/dL (0.4-1.0); TOTAL PROTEIN 8.6 g/dL (6.7-8.2)
--- NOTE | 2020-10-05 18:41 | CT Report ---
PROCEDURE: ANGIO ABDOMEN/PELVIS W INDICATIONS: R flank pain CONTRAST: IV CONTRAST: Optiray 320 ml: 100 cc TECHNIQUE: After the administration of intravenous contrast, 2 and 5 mm sections acquired from the diaphragm to the iliac crests. 3-dimensional maximum intensity projection (MIP) coronal and sagittal reformats, a nd/or 3-dimensional volume rendering reformatting was then performed. For radiation dose reduction, the following was used: automated exposure control, adjustment of mA and/or kV according to patient size. COMPARISON: CXR 09/29/2020. FINDINGS: Image quality: Excellent. Extravascular tissues: Minimal atelectasis at the right lung base. No pleural effusion. Right mastect joana. Heart size is within normal limits. Small hiatal hernia. Liver and spleen are normal in size. Well-circumscribed hepatic hypodensities are most compatible wit h benign cysts. Gallbladder is unremarkable. Biliary system is non dilated. Pancreas is atrophic a ppearing. No adrenal nodules. Kidneys are normal in size and enhancement, without hydronephrosis. N o kidney stones seen. Left kidney cortical hypodensity which is too small to further progress. Non-opacified bowel loops demonstrate normal wall thickness and caliber. Diverticulosis. The appendix is normal in caliber, (4/59). No contrast extravasation seen. No free fluid or air. No retroperiton eal or mesenteric adenopathy. No ventral hernias. Suspect small calcified fibroids. Pelvic floor lax ity. No suspicious bony abnormalities. Advanced degenerative DDD at L1-L2. No vertebral body guillaume nitesh fractures. Scoliosis. Advanced degenerative change of the hip joints. Abdominal aorta: Minimal ectasia. Moderate calcified metastatic plaque. No aneurysm or dissection. Mesenteric arteries: Mild calcified plaque in the celiac artery. Moderate plaque in the splenic carmen ry. Mild plaque near the origin of the SMA. No filling defects identified. Calcified plaque in the IM A. Renal arteries: Patent. Moderate plaque at the origin of the left renal artery. IMPRESSION: No acute abnormality demonstrated to explain the patient's right flank pain. No free fluid. Overall moderate calcified arthroscopic plaque. Celiac and SMA are patent. Calcified plaque in the pr oximal BRETT which is patent distally. No small bowel obstruction. No kidney stones identified. No hydronephrosis. Reviewed by: William Orosco MD on 10/05/2020 5:39 PM [facility] Approved by: William Orosco MD on 10/05/2020 5:39 PM [facility] Station ID: [id number]
[2020-10-05] MEDS ORDERED: predniSONE 20 MG TABLET PO STA (19:03)
[2020-10-05] MEDS ORDERED: GABAPENTIN 100 MG CAPSULE PO STA (19:03)
[2020-10-05 19:39] LABS: BILIRUBIN,URINE NEGATIVE (NEGATIVE); GLUCOSE, URINE (UA) NEGATIVE (NEGATIVE); KETONES,URINE (UA) NEGATIVE (NEGATIVE); LEUKOCYTE ESTERASE, URINE NEGATIVE (NEGATIVE); NITRITE,URINE NEGATIVE (NEGATIVE); OCCULT BLOOD,URINE NEGATIVE (NEGATIVE); PH,URINE 6.5 PH (5.0-7.5); PROTEIN,URINE NEGATIVE (NEGATIVE); UROBILINOGEN,URINE 0.2 (NORMAL) E.U./dL (NORMAL)
[2020-10-05 19:44] VITALS: BP 217/76
[2020-10-05 19:52] LABS: CLARITY,URINE CLEAR (CLEAR)
== END 2020-10-05 20:15 | disposition home or self-care (01) ==
LOC: ED 16:04
DX: M54.5 Low back pain (principal)
CPT/HCPCS: 36415; 74174; 80053; 81003; 83690; 85025; 99283; 99284; A9270; J7512; Q9967; 81001; 87086

== ENCOUNTER 2020-10-27 12:04 | Outpatient (CLI) | payer MEDICARE, OTHER | END 2020-10-27 12:05 | disposition home or self-care (01) | LOC: DI 12:04 | PROVIDERS: ATTEND Family Medicine | DX: I21.4 Non-ST elevation (NSTEMI) myocardial infarction (principal); I35.0 Nonrheumatic aortic (valve) stenosis | CPT/HCPCS: 93306 ==

== ENCOUNTER 2020-11-19 12:06 | Outpatient (CLI) | payer MEDICARE, OTHER ==
--- NOTE | 2020-11-20 11:03 | Nuclear Medicine Report ---
PROCEDURE: Rest and exercise myocardial perfusion SPECT with gated imaging and ejection fraction INDICATIONS: NSTEMI RADIOPHARMACEUTICAL: 12.4 mCi Tc-99m Myoview IV TECHNIQUE: Radiopharmaceutical was injected, but patient could not comply with further imaging secon barbie to comfort/positioning factors COMPARISON: None available. IMPRESSION: Following radiotracer injection, patient could not comply with further imaging Reviewed by: Alexus Chatman MD on 11/20/2020 11:01 AM PST Approved by: Alexus Chatman MD on 11/20/2020 11:01 AM PST Station ID: [id number]
== END 2020-11-19 12:07 | disposition home or self-care (01) ==
LOC: DI 12:06
PROVIDERS: ATTEND Family Medicine
DX: R07.9 Chest pain, unspecified (principal)
CPT/HCPCS: 78452; 93017; A9500

== ENCOUNTER 2020-11-28 13:46 | Outpatient (CLI) | payer MEDICARE, OTHER ==
--- NOTE | 2020-11-28 14:41 | XRAY Report ---
PROCEDURE: Lumbar Spine 2 View INDICATIONS: LUMBAR PAIN TECHNIQUE: 3 views of the lumbar spine were acquired. COMPARISON: None. FINDINGS: Bones: 5 [id number] vertebrae are present. There is moderate leftward curvature of the upper l umbar spine. Mild grade 1 anterolisthesis of L4 on L5. Multilevel disc space narrowing, endplate oste ophyte formation, and facet hypertrophy. No vertebral body compression fractures. No suspicious bony lesions. Soft tissues: Overlying bowel gas pattern is normal. No suspicious soft tissue calcifications. IMPRESSION: Multilevel degenerative disc and facet disease. No acute fracture. No osseous lesion. If symptoms and/or clinical suspicion for pathology continue, further assessment with repeat plain film s, or advanced imaging (e.g., CT, MRI, or bone scan) is recommended for further assessment. Reviewed by: Alexus Chatman MD on 11/28/2020 1:40 PM [facility] Approved by: Alexus Chatman MD on 11/28/2020 1:40 PM [facility] Station ID: [id number]
== END 2020-11-28 13:47 | disposition home or self-care (01) ==
LOC: DI.N 13:46
PROVIDERS: ATTEND Family Medicine
DX: M51.36 Other intervertebral disc degeneration, lumbar region (principal); M47.816 Spondylosis without myelopathy or radiculopathy, lumbar region; M43.16 Spondylolisthesis, lumbar region

== ENCOUNTER 2021-08-11 02:48 | Outpatient (CLI) | payer MEDICARE, OTHER | END 2021-08-11 02:49 | disposition EMS.NT | LOC: EMS 02:48 | DX: R07.9 Chest pain, unspecified (principal) | CPT/HCPCS: A0425; A0429 ==

== ENCOUNTER 2021-08-11 03:06 | Emergency (ER) | payer MEDICARE, OTHER ==
[2021-08-11] MEDS ORDERED: ASPIRIN CHEW 81 MG TABLET PO STA (03:15)
[2021-08-11 03:50] LABS: BASOPHILS # (AUTO) 0.1 10^3/uL (0.0-0.1); BASOPHILS % (AUTO) 0.8 %; EOSINOPHILS # (AUTO) 0.2 10^3/uL (0.0-0.7); EOSINOPHILS % (AUTO) 2.9 %; HCT - HEMATOCRIT 39.9 % (37.0-47.0); HGB - HEMOGLOBIN 13.3 g/dL (12.0-16.0); LYMPHOCYTES # (AUTO) 2.4 10^3/uL (1.5-3.5); LYMPHOCYTES % (AUTO) 30.5 %; MEAN CORPUSCULAR HEMOGLOBIN 32.1 pg (27.0-31.0); MEAN CORPUSCULAR HGB CONC 33.3 g/dL (32.0-36.0); MEAN CORPUSCULAR VOLUME 96.4 fL (81.0-99.0); MEAN PLATELET VOLUME 10.8 fL (7.9-10.8); MONOCYTES # (AUTO) 0.6 10^3/uL (0.0-1.0); NEUTROPHILS # (AUTO) 4.5 10^3/uL (1.5-6.6); NEUTROPHILS % (AUTO) 57.4 %; PLT - PLATELET COUNT 193 10^3/uL (130-450); RED BLOOD COUNT 4.14 10^6/uL (4.20-5.40); RED CELL DISTRIBUTION WIDTH 12.7 % (12.0-15.0); WHITE BLOOD COUNT 7.9 x10^3/uL (4.8-10.8)
[2021-08-11 03:55] LABS: PT - PROTHROMBIN TIME 11.4 secs (9.9-12.6)
[2021-08-11 04:02] LABS: ALBUMIN 3.8 g/dL (3.2-5.5); ALBUMIN/GLOBULIN RATIO 1.1 (1.0-2.2); BILIRUBIN,TOTAL 0.5 mg/dL (0.2-1.0); CALCIUM 9.5 mg/dL (8.5-10.3); CREATININE 0.9 mg/dL (0.4-1.0); TOTAL PROTEIN 7.2 g/dL (6.7-8.2)
--- NOTE | 2021-08-11 05:59 | ED Physician Documentation ---
PD HPI CHEST PAIN - Stated complaint Stated Complaint: CP - Chief complaint Chief Complaint: Cardiac - Additional information Additional information: Patient is an 85-year-old female with known history of dementia, hypertension, NSTEMI presenting to the emergency department today with chief complaint of back pain. Patient is poor historian secondary to dementia but did endorse for history of 4 hours of chest pain that resolved prior to arrival. She did report taking aspirin at the instruction of EMS prior to arrival. Further history is limited by the patient's dementia. 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 - Past Surgical History Past Surgical History: Yes /BODY DESIGN CHECKER: Mastectomy - Present Medications Home Medications: Ambulatory Orders Medication Instructions Recorded Confirmed Atenolol [Tenormin] 50 mg PO DAILY 09/29/20 08/11/21 Gabapentin [Neurontin] 100 mg PO TID PRN #60 tab 10/05/20 08/11/21 Amlodipine Besylate [Norvasc] 5 mg PO DAILY 08/11/21 08/11/21 lisinopriL [Prinivil] 20 mg PO DAILY 08/11/21 08/11/21 - Allergies Allergies/Adverse Reactions: Allergies Allergy/AdvReac Type Severity Reaction Status Date / Time soy Allergy Unknown Verified 08/11/21 03:10 - Social History Does the pt smoke?: No Smoking Status: Never smoker Does the pt drink ETOH?: No Does the pt have substance abuse?: No - Immunizations Immunizations are current?: Yes PD ED PE NORMAL - General General: No acute distress - HEENT HEENT: Atraumatic - Neck Neck: Supple, no meningeal sign, No JVD - Cardiac Cardiac: RRR, No murmur, No gallop, No rub, Strong equal pulses - Respiratory Respiratory: No respiratory distress - Abdomen Abdomen: Normal bowel sounds, Soft, Non tender, Non distended - Female Female : No: Deferred - Rectal Rectal: No: Deferred - Derm Derm: Normal color, No rash - Extremities Extremities: No deformity, No tenderness to palpate, No edema - Neuro Neuro: groundskeeper 2-12 intact, No motor deficit, No sensory deficit, Normal speech Eye Opening: Spontaneous Motor: Obeys Commands Verbal: Confused GCS Score: 14 - Psych Psych: Normal mood Results - Vitals Vitals: Vital Signs - 24 hr 08/11/21 08/11/21 08/11/21 03:10 03:16 04:47 Temperature 36.9 C Heart Rate 72 63 Respiratory 16 15 19 Rate Blood Pressure 148/74 H 151/75 H O2 Saturation 96 98 08/11/21 05:37 Temperature Heart Rate Respiratory 16 Rate Blood Pressure O2 Saturation Oxygen O2 Source Room air - EKG (time done) 08/11/2021 Rate: Rate (enter#) (56) Rhythm: NSR [place]: Normal Intervals: Normal [place], QRS normal Ischemia: Normal ST segments, Hyperacute T waves Compare to prior EKG: Unchanged from prior EKG (09-29-20) Computer interpretation: Agree with computer - Labs Labs: Laboratory Tests 08/11/21 08/11/21 08/11/21 03:38 03:38 03:38 WBC 7.9 RBC 4.14 L Hgb 13.3 Hct 39.9 MCV 96.4 MCH 32.1 H MCHC 33.3 RDW 12.7 Plt Count 193 MPV 10.8 Neut # (Auto) 4.5 Lymph # (Auto) 2.4 [place] # (Auto) 0.6 Eos # (Auto) 0.2 Baso # (Auto) 0.1 Absolute Nucleated RBC 0.00 Nucleated RBC % 0.0 PT 11.4 INR 1.0 Sodium 137 Potassium 4.0 Chloride 103 Carbon Dioxide 23 Anion Gap 11.0 BUN 22 H Creatinine 0.9 Estimated GFR (MDRD) 60 L Glucose 152 H Calcium 9.5 Total Bilirubin 0.5 AST 17 ALT 13 Alkaline Phosphatase 80 Troponin I High Sens B-Natriuretic Peptide Total Protein 7.2 Albumin 3.8 Globulin 3.4 Albumin/Globulin Ratio 1.1 Lipase 21 L 08/11/21 08/11/21 08/11/21 03:38 03:38 05:15 WBC RBC Hgb Hct MCV MCH MCHC RDW Plt Count MPV Neut # (Auto) Lymph # (Auto) [place] # (Auto) Eos # (Auto) Baso # (Auto) Absolute Nucleated RBC Nucleated RBC % PT INR Sodium Potassium Chloride Carbon Dioxide Anion Gap BUN Creatinine Estimated GFR (MDRD) Glucose Calcium Total Bilirubin AST ALT Alkaline Phosphatase Troponin I High Sens 9.5 9.7 B-Natriuretic Peptide 307 H Total Protein Albumin Globulin Albumin/Globulin Ratio Lipase - Rads (name of study) [id number] Radiology: Prelim report reviewed (Impression: No acute cardiopulmonary disease) PD MEDICAL DECISION MAKING - ED course Complexity details: reviewed old records, reviewed results, considered differential, d/w patient ED course: Patient is in 85-year-old female with known history dementia, aortic stenosis and previous NSTEMI presenting to the emergency department with chest pain. Pain resolved prior to arrival. Patient afebrile, hemodynamically stable on arrival to the emergency department. History limited by her dementia however EKG obtained in the emergency department was unchanged from previous. Chest x- ray was nonacute and her initial and repeat troponin were negative. Chart review does demonstrate that she had a stress test performed in June of this year which was negative. Given these findings I do believe it is safe to discharge the patient home for careful follow-up with primary care. She was encouraged to return to the emergency department for any new or worsening symptoms. Departure - Departure Disposition: 01 Home, Self Care Clinical Impression: Chest pain Condition: Fair Instructions: ED Chest Pain [facility]O Comments: Thank you for allowing us to care for Crystal today at [facility] All of the studies performed in the emergency department today including her EKG, chest x-ray and blood work were all very reassuring. I would like you to follow-up with her primary care doctor as soon as you are able. If it anytime she has any new or worsening chest pain please return to the emergency department immediately for further evaluation and treatment.
[2021-08-11 06:20] VITALS: BP 153/72
--- NOTE | 2021-08-11 07:25 | XRAY Report ---
PROCEDURE: Chest 1 View X-Ray INDICATIONS: chest pain TECHNIQUE: One view of the chest was acquired. COMPARISON: 09/29/2020 FINDINGS: Surgical changes and devices: Stable postsurgical changes from prior ACDF. Multiple surgical clips in the right axilla as before. Surgical clips project over the lower right chest. Lungs and pleura: No pleural effusions or pneumothorax. Lungs are clear. Mediastinum: Mediastinal contours appear normal. Heart size is normal. Bones and chest wall: No suspicious bony lesions. Overlying soft tissues appear unremarkable. IMPRESSION: Chest without acute cardiopulmonary abnormalities. No focal airspace disease. No significant discrepancy with initial interpretation by overnight radiologist. Reviewed by: Chema Shelton MD on 08/11/2021 7:24 AM PST Approved by: Chema Shelton MD on 08/11/2021 7:24 AM PST Station ID: [id number]
== END 2021-08-11 06:20 | disposition home or self-care (01) ==
LOC: EDUNIT# → ED 03:06
DX: R07.9 Chest pain, unspecified (principal)
CPT/HCPCS: 36415; 80053; 83690; 83880; 84484; 85025; 85610; 93005; 99281; 99283

== ENCOUNTER 2021-09-29 22:57 | Emergency (ER) | payer MEDICARE, OTHER ==
--- NOTE | 2021-09-29 23:12 | ED Physician Documentation ---
History of Present Illness - Stated complaint Stated Complaint: CP - Chief complaint Chief Complaint: Cardiac - History obtained from History obtained from: Patient, EMS - Additonal information Additional information: 86yF with pmh aortic stenosis, dementia, p/w CP sudden onset lying in bed around 10pm tonight, a/w nausea. 5/10 severity, resolving after ems arrival. took 325 ASA in the field. vital signs, fingerstick normal in field. EKG was NSR with 1st degree avb. In the ED, patient states she is not having any symptoms and wants to go home. further history limited by patient refusal to answer questions. 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 - Past Surgical History Past Surgical History: Yes /SHOT COAT TENDER: Mastectomy - Present Medications Home Medications: Ambulatory Orders Medication Instructions Recorded Confirmed Amlodipine Besylate [Norvasc] 5 mg PO DAILY 08/11/21 09/29/21 - Allergies Allergies/Adverse Reactions: Allergies Allergy/AdvReac Type Severity Reaction Status Date / Time soy Allergy Unknown Verified 09/29/21 23:00 - Social History Does the pt smoke?: No Smoking Status: Never smoker Does the pt drink ETOH?: No Does the pt have substance abuse?: No - Immunizations Immunizations are current?: Yes PD ED PE NORMAL - Vitals Vital signs reviewed: Yes - General General: No acute distress, Well developed/nourished, Other (Alert and oriented) - HEENT HEENT: Atraumatic, PERRL, EOMI - Neck Neck: Supple, no meningeal sign - Cardiac Cardiac: RRR, Other (loud systolic murmur) - Respiratory Respiratory: No respiratory distress, Clear bilaterally - Abdomen Abdomen: Non tender, Non distended - Back Back: No CVA TTP - Derm Derm: Normal color, Warm and dry - Extremities Extremities: No deformity - Neuro Neuro: No motor deficit, No sensory deficit - Psych Psych: Normal mood, Normal affect Results - Vitals Vitals: Vital Signs - 24 hr 09/29/21 09/29/21 09/29/21 22:57 23:05 23:30 Temperature 36.2 C L Heart Rate 99 88 Respiratory 20 15 Rate Blood Pressure 197/87 H 167/97 H Blood Pressure 167/91 H [Left] O2 Saturation 94 97 1209/29/21 09/30/21 23:32 23:59 00:12 Temperature Heart Rate 91 86 90 Respiratory 16 18 21 Rate Blood Pressure 167/91 H 189/115 H 150/93 H Blood Pressure [Left] O2 Saturation 96 96 97 09/30/21 09/30/21 09/30/21 00:27 00:30 01:00 Temperature Heart Rate 92 87 83 Respiratory 15 19 19 Rate Blood Pressure 150/93 H 165/81 H 177/79 H Blood Pressure [Left] O2 Saturation 96 97 98 09/30/21 09/30/21 01:08 01:30 Temperature Heart Rate 70 71 Respiratory 16 18 Rate Blood Pressure 117/79 177/79 H Blood Pressure [Left] O2 Saturation 97 96 Oxygen O2 Source Room air - EKG (time done) 2354 Rate: Rate (enter#) (86) Rhythm: NSR [place]: Normal Intervals: Prolonged [place] (224) QRS: LVH Ischemia: Normal ST segments Compare to prior EKG: Unchanged from prior EKG - Labs Labs: Laboratory Tests 09/29/21 09/29/21 09/29/21 23:27 23:27 23:27 WBC 8.3 RBC 4.24 Hgb 13.8 Hct 40.3 MCV 95.0 MCH 32.5 H MCHC 34.2 RDW 12.7 Plt Count 209 MPV 10.6 Neut # (Auto) 4.9 Lymph # (Auto) 2.5 [place] # (Auto) 0.6 Eos # (Auto) 0.2 Baso # (Auto) 0.1 Absolute Nucleated RBC 0.00 Nucleated RBC % 0.0 Sodium 135 Potassium 3.8 Chloride 99 L Carbon Dioxide 24 Anion Gap 12.0 BUN 23 H Creatinine 0.7 Estimated GFR (MDRD) 80 L Glucose 173 H Calcium 9.4 Total Bilirubin 0.4 AST 19 ALT 15 Alkaline Phosphatase 73 Troponin I High Sens 14.7 Total Protein 7.7 Albumin 4.0 Globulin 3.7 Albumin/Globulin Ratio 1.1 Lipase 20 L 09/30/21 00:59 WBC RBC Hgb Hct MCV MCH MCHC RDW Plt Count MPV Neut # (Auto) Lymph # (Auto) [place] # (Auto) Eos # (Auto) Baso # (Auto) Absolute Nucleated RBC Nucleated RBC % Sodium Potassium Chloride Carbon Dioxide Anion Gap BUN Creatinine Estimated GFR (MDRD) Glucose Calcium Total Bilirubin AST ALT Alkaline Phosphatase Troponin I High Sens 20.7 H* Total Protein Albumin Globulin Albumin/Globulin Ratio Lipase PD MEDICAL DECISION MAKING - ED course ED course: 86yF p/w CP sudden onset lying in bed around 10pm tonight, a/w nausea. further history limited by patient refusal to answer questions. patient stating she wants to go home, however she agreed to labwork and ekg after initial conversation. patient does not want cxr as of right now. d/w daughter Melvi who states she lives with the patient, who called her into her room. daughter states she seemed fine during the day today and they were watching TV during the day. Daughter came in at 10pm to talk to her and patient told her around that time that her chest was hurting badly and that she needed to call 911. did not give further history. Daughter states she can't remember much of what happened. She is concerned about her mother and would like her to stay for medical workup. Given patient history of dementia she lacks capacity to leave AMA therefore I will work on getting her to assent to further testing. Patient with negative workup in the ED with exception of borderline elevated repeat high sensitivity troponin. Since it is relatively flat and she has been asymptomatic while here, shared decision was made to discharge home. strict return precautions provided. plan to f/u with pmd for possible referral to cardiology for further eval. Departure - Departure Disposition: 01 Home, Self Care Clinical Impression: Chest pain Condition: Good Instructions: ED Chest Pain Atypical Unkn Cause Follow-Up: Matt Jane DO [Provider Admit Priv/Credential] - Comments: You were seen in the emergency department for evaluation of chest pain. Your EKG, chest x-ray, and lab work showed no emergent findings with the exception of a borderline elevated troponin, a blood test for your heart. Repeat troponin did not significantly go up, which is a good sign. You should however follow-up with Dr. Rodriges, your primary doctor for further evaluation. He may decide to refer you to a specialist (compensation coordinator). Return to the emergency department immediately if you have any new or worsening symptoms or other concerns.
[2021-09-29 23:32] LABS: BASOPHILS # (AUTO) 0.1 10^3/uL (0.0-0.1); BASOPHILS % (AUTO) 0.6 %; EOSINOPHILS # (AUTO) 0.2 10^3/uL (0.0-0.7); HCT - HEMATOCRIT 40.3 % (37.0-47.0); HGB - HEMOGLOBIN 13.8 g/dL (12.0-16.0); LYMPHOCYTES # (AUTO) 2.5 10^3/uL (1.5-3.5); LYMPHOCYTES % (AUTO) 30.6 %; MEAN CORPUSCULAR HEMOGLOBIN 32.5 pg (27.0-31.0); MEAN CORPUSCULAR HGB CONC 34.2 g/dL (32.0-36.0); MEAN PLATELET VOLUME 10.6 fL (7.9-10.8); MONOCYTES # (AUTO) 0.6 10^3/uL (0.0-1.0); MONOCYTES % (AUTO) 7.2 %; NEUTROPHILS # (AUTO) 4.9 10^3/uL (1.5-6.6); NEUTROPHILS % (AUTO) 59.4 %; PLT - PLATELET COUNT 209 10^3/uL (130-450); RED BLOOD COUNT 4.24 10^6/uL (4.20-5.40); RED CELL DISTRIBUTION WIDTH 12.7 % (12.0-15.0); WHITE BLOOD COUNT 8.3 x10^3/uL (4.8-10.8)
--- NOTE | 2021-09-29 23:34 | XRAY Report ---
PROCEDURE: Chest 1 View X-Ray INDICATIONS: Chest Pain TECHNIQUE: One view of the chest was acquired. COMPARISON: Chest x-ray 08/11/2021 FINDINGS: Surgical changes and devices: Partially visualized cervical fixation plate is present. Right chest wa ll clips are noted. Lungs and pleura: No consolidations. There is unchanged blunting of the costophrenic angles likely r elated to scarring. Mediastinum: Mediastinal contours appear normal. Heart size is mildly enlarged. Bones and chest wall: No suspicious bony lesions. Overlying soft tissues appear unremarkable. IMPRESSION: No acute pulmonary process. Reviewed by: Mohini Smith MD on 09/29/2021 11:33 PM PST Approved by: Mohini Smith MD on 09/29/2021 11:33 PM PST Station ID: [id number]
[2021-09-29 23:44] LABS: ALBUMIN/GLOBULIN RATIO 1.1 (1.0-2.2); BILIRUBIN,TOTAL 0.4 mg/dL (0.2-1.0); CALCIUM 9.4 mg/dL (8.5-10.3); CREATININE 0.7 mg/dL (0.4-1.0); POTASSIUM 3.8 mmol/L (3.5-5.0); TOTAL PROTEIN 7.7 g/dL (6.7-8.2)
[2021-09-30 02:50] VITALS: BP 147/66
== END 2021-09-30 03:22 | disposition home or self-care (01) ==
LOC: EDUNIT# → ED 22:57
DX: R07.9 Chest pain, unspecified (principal); I35.0 Nonrheumatic aortic (valve) stenosis; R77.8 Other specified abnormalities of plasma proteins; I10 Essential (primary) hypertension
CPT/HCPCS: 36415; 80053; 83690; 84484; 85025; 93005; 99281; 99284

== ENCOUNTER 2021-10-11 08:00 | Outpatient (CLI) | payer MEDICARE, OTHER | END 2021-10-11 23:59 | LOC: LAB.N 08:00 | PROVIDERS: ATTEND Family Medicine | DX: U07.1 COVID-19 (principal) ==

== ENCOUNTER 2021-10-30 06:00 | Outpatient (CLI) | payer MEDICARE, OTHER | END 2021-10-30 06:01 | disposition critical access hospital (66) | LOC: EMS 06:00 | DX: R07.9 Chest pain, unspecified (principal) | CPT/HCPCS: A0425; A0429 ==

== ENCOUNTER 2021-10-30 06:19 | Emergency (ER) | payer MEDICARE, OTHER ==
--- NOTE | 2021-10-30 07:33 | ED Physician Documentation ---
PD HPI CHEST PAIN - Stated complaint Stated Complaint: CP - Chief complaint Chief Complaint: Cardiac - History obtained from History obtained from: Patient, EMS - Additional information Additional information: 86-year-old female with past history significant for aortic stenosisHypertension, dyslipidemia, distant history of breast cancer presenting to the emergency department with chest pain. Per EMS history patieWoke this evening with substernal chest pain 5/10 in intensity. Patient reports that the symptoms have abated and she is currently pain-free. States repeatedly "I just want to go home" Is a poor historian, states that she sees a duco polisher who she believes practices at [facility] but is not certain. Reports has been having intermittent pains like this for "a while" but is unable to elucidate how long or how frequently she has chest pain. Chart review does demonstrate patient has been seen at this facility multiple times Similar symptoms. 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 FINANCIAL ANALYST: Mastectomy - Present Medications Home Medications: Ambulatory Orders Medication Instructions Recorded Confirmed Amlodipine Besylate [Norvasc] 5 mg PO DAILY 08/11/21 09/29/21 - Allergies Allergies/Adverse Reactions: Allergies Allergy/AdvReac Type Severity Reaction Status Date / Time soy Allergy Unknown Verified 09/29/21 23:00 - Social History Does the pt smoke?: No Smoking Status: Never smoker Does the pt drink ETOH?: No Does the pt have substance abuse?: No - Immunizations Immunizations are current?: Yes - POLST Patient has POLST: No PD ED PE NORMAL - Vitals Vital signs reviewed: Yes - General General: Alert and oriented X 3 - HEENT HEENT: Atraumatic - Neck Neck: Supple, no meningeal sign - Cardiac Cardiac: RRR, No gallop - Respiratory Respiratory: No respiratory distress - Abdomen Abdomen: Normal bowel sounds - Female Female : Deferred - Rectal Rectal: Deferred - Back Back: No CVA TTP - Derm Derm: Normal color - Extremities Extremities: No deformity - Neuro Neuro: Alert and oriented X 3, grader marker 2-12 intact, No motor deficit - Psych Psych: Normal mood Results - Vitals Vitals: Vital Signs - 24 hr 10/30/21 10/30/21 10/30/21 06:44 07:33 09:10 Temperature 36.2 C L 37.0 C Heart Rate 65 58 L 57 L Respiratory 20 28 H 16 Rate Blood Pressure 169/55 H 140/70 H 173/66 H O2 Saturation 95 95 96 Oxygen O2 Source Room air - EKG (time done) 0627 Rate: Rate (enter#) Rhythm: NSR [place]: Normal Intervals: Prolonged [place], QRS normal QRS: Normal Ischemia: T wave inversion Compare to prior EKG: Unchanged from prior EKG - Labs Labs: Laboratory Tests 10/30/21 10/30/21 10/30/21 06:41 06:41 06:41 WBC 8.4 RBC 3.99 L Hgb 12.8 Hct 38.1 MCV 95.5 MCH 32.1 H MCHC 33.6 RDW 12.8 Plt Count 218 MPV 11.2 H Neut # (Auto) 5.6 Lymph # (Auto) 2.0 [place] # (Auto) 0.6 Eos # (Auto) 0.1 Baso # (Auto) 0.1 Absolute Nucleated RBC 0.00 Nucleated RBC % 0.0 Sodium 137 Potassium 4.1 Chloride 102 Carbon Dioxide 24 Anion Gap 11.0 BUN 20 Creatinine 0.8 Estimated GFR (MDRD) 68 L Glucose 248 H Calcium 9.3 Total Bilirubin 0.6 AST 19 ALT 16 Alkaline Phosphatase 60 Troponin I High Sens 10.0 Total Protein 7.4 Albumin 3.8 Globulin 3.6 Albumin/Globulin Ratio 1.1 Lipase 20 L PD MEDICAL DECISION MAKING - ED course ED course: More episodes of painPatient is 86-year-old female presenting to the emergency department with chest pain. Endorses for substernal chest pain that woke her from rest. Pain for the last several months. States was following with cardiology at [facility], and was scheduled for angiography however she declined this procedure. She does state that she is in the process of speaking with her duco polisher about rescheduling given that she is continuing to have pain. Afebrile, hemodynamically stable on arrival to the emergency department. Asymptomatic on arrival. EKG as outlined above was negative for indications of acute cardiac ischemia or dysrhythmia and was unchanged from patient's previous. Troponin negative. Chest x-ray nonacute. Patient monitored in the emergency department for several hours, did discuss the multiple possible etiologies of her chest pain with her and spoke about the possibility of hospitalization however she indicated that she is not interested in hospitalization at this time and would like to go home, where she is cared for by her daughter and follow-up with her primary care doctor. She was encouraged to return to the emergency department for new or worsening symptoms as well as to contact her duco polisher first thing on Monday for further evaluation and treatment. Departure - Departure Disposition: , Self Care Clinical Impression: Chest pain Instructions: ED Chest Pain Atypical Unkn Cause Comments: Thank you for allowing us to care for you today at [facility]. All of the testing performed in the emergency department including your EKG, chest x-ray and blood work was all very reassuring. I would like you to follow- up very closely with your duco polisher. Please call them first thing Monday. If at any time you have any new or worsening pain please return to the emergency department immediately for further evaluation and treatment. Discharge Date/Time: 10/30/21 09:26
[2021-10-30 07:39] LABS: BASOPHILS # (AUTO) 0.1 10^3/uL (0.0-0.1); BASOPHILS % (AUTO) 0.7 %; EOSINOPHILS # (AUTO) 0.1 10^3/uL (0.0-0.7); EOSINOPHILS % (AUTO) 1.7 %; HCT - HEMATOCRIT 38.1 % (37.0-47.0); HGB - HEMOGLOBIN 12.8 g/dL (12.0-16.0); LYMPHOCYTES % (AUTO) 23.7 %; MEAN CORPUSCULAR HEMOGLOBIN 32.1 pg (27.0-31.0); MEAN CORPUSCULAR HGB CONC 33.6 g/dL (32.0-36.0); MEAN CORPUSCULAR VOLUME 95.5 fL (81.0-99.0); MEAN PLATELET VOLUME 11.2 fL (7.9-10.8); MONOCYTES # (AUTO) 0.6 10^3/uL (0.0-1.0); MONOCYTES % (AUTO) 7.4 %; NEUTROPHILS # (AUTO) 5.6 10^3/uL (1.5-6.6); PLT - PLATELET COUNT 218 10^3/uL (130-450); RED BLOOD COUNT 3.99 10^6/uL (4.20-5.40); RED CELL DISTRIBUTION WIDTH 12.8 % (12.0-15.0); WHITE BLOOD COUNT 8.4 x10^3/uL (4.8-10.8)
[2021-10-30 07:53] LABS: ALBUMIN 3.8 g/dL (3.2-5.5); ALBUMIN/GLOBULIN RATIO 1.1 (1.0-2.2); BILIRUBIN,TOTAL 0.6 mg/dL (0.2-1.0); CALCIUM 9.3 mg/dL (8.5-10.3); CREATININE 0.8 mg/dL (0.4-1.0); POTASSIUM 4.1 mmol/L (3.5-5.0); TOTAL PROTEIN 7.4 g/dL (6.7-8.2)
--- NOTE | 2021-10-30 07:59 | XRAY Report ---
PROCEDURE: Chest 1 View X-Ray INDICATIONS: Chest Pain TECHNIQUE: One view of the chest was acquired. COMPARISON: 09/29/2021 FINDINGS: Surgical changes and devices: Plate and screw hardware noted in the mid cervical spine. Surgical clip s present in the right axilla and overlying the right chest wall. Lungs and pleura: No pleural effusions or pneumothorax. Lungs are clear. Mediastinum: Mediastinal contours appear normal. Heart size is enlarged. Bones and chest wall: No suspicious bony lesions. Overlying soft tissues appear unremarkable. IMPRESSION: No acute cardiopulmonary findings Note: Final report is concordant with preliminary report provided by [facility] Reviewed by: Pankaj Palmer MD on 10/30/2021 6:57 AM [facility] Approved by: Pankaj Palmer MD on 10/30/2021 6:57 AM [facility] Station ID: [id number]
[2021-10-30 09:10] VITALS: BP 173/66
== END 2021-10-30 09:26 | disposition home or self-care (01) ==
LOC: EDUNIT# → ED 06:19
DX: R07.9 Chest pain, unspecified (principal); I10 Essential (primary) hypertension; I35.0 Nonrheumatic aortic (valve) stenosis
CPT/HCPCS: 36415; 80053; 83690; 84484; 85025; 93005; 99283; 99284

== ENCOUNTER 2021-11-13 23:47 | Outpatient (CLI) | payer MEDICARE, OTHER | END 2021-11-13 23:48 | disposition critical access hospital (66) | LOC: EMS 23:47 | DX: R07.9 Chest pain, unspecified (principal) | CPT/HCPCS: A0425; A0429 ==

== ENCOUNTER 2021-11-14 00:02 | Emergency (ER) | payer MEDICARE, OTHER ==
[2021-11-14 00:26] LABS: BASOPHILS # (AUTO) 0.1 10^3/uL (0.0-0.1); BASOPHILS % (AUTO) 0.6 %; EOSINOPHILS # (AUTO) 0.2 10^3/uL (0.0-0.7); EOSINOPHILS % (AUTO) 2.7 %; HCT - HEMATOCRIT 39.9 % (37.0-47.0); HGB - HEMOGLOBIN 13.2 g/dL (12.0-16.0); LYMPHOCYTES # (AUTO) 2.7 10^3/uL (1.5-3.5); LYMPHOCYTES % (AUTO) 33.6 %; MEAN CORPUSCULAR HEMOGLOBIN 32.2 pg (27.0-31.0); MEAN CORPUSCULAR HGB CONC 33.1 g/dL (32.0-36.0); MEAN CORPUSCULAR VOLUME 97.3 fL (81.0-99.0); MEAN PLATELET VOLUME 10.9 fL (7.9-10.8); MONOCYTES # (AUTO) 0.5 10^3/uL (0.0-1.0); MONOCYTES % (AUTO) 6.7 %; NEUTROPHILS # (AUTO) 4.5 10^3/uL (1.5-6.6); NEUTROPHILS % (AUTO) 56.2 %; PLT - PLATELET COUNT 175 10^3/uL (130-450); RED CELL DISTRIBUTION WIDTH 13.1 % (12.0-15.0); WHITE BLOOD COUNT 8.1 x10^3/uL (4.8-10.8)
--- NOTE | 2021-11-14 00:27 | ED Physician Documentation ---
PD HPI CHEST PAIN - Stated complaint Stated Complaint: CP - Chief complaint Chief Complaint: Cardiac - History obtained from History obtained from: Patient - History of Present Illness Timing - onset: Enter time (2299), Today Timing - onset during: Rest (in bed) Timing - duration: Minutes (20) Timing - details: Abrupt onset, Now resolved Quality: Pressure, Sharp Location: Substernal Radiation: Left upper extremity, Right upper extremity Improved by: Other (nothing) Worsened by: Other (nothing) Associated symptoms: Nausea, Cough (mild). No: Shortness of air, Diaphoresis, Vomiting, Feeling faint / dizzy, General Weakness, Palpitations Similar symptoms before: Diagnosis (atypical chest pain) Recently seen: Emergency Dept - Additional information Additional information: 86 y/o female with history of CAD without stents or bypass and aortic stenosis was in bed when she developed a hard pressure in the central chest and this radiated to both arms. She had pain long enough to get concerned but resolved prior to arrival of medics. She never got short of breath or diaphoretic but she did get nauseated without vomiting. She feels normal now. She is a poor historian but believes she has had a coronary cath with some disease not bad enough to stent. She recalls a stress test as well. The patient has some dementia and does not recall all details. A review of her chart notes the arotic stenosis.. Review of Systems Constitutional: denies: Fever, Chills, Myalgias Eyes: denies: Decreased vision Ears: denies: Ear pain Nose: denies: Congestion Throat: denies: Sore throat Cardiac: reports: Chest pain / pressure. denies: Palpitations, Pedal edema, Calf pain Respiratory: reports: Cough. denies: Dyspnea, Wheezing GI: reports: Nausea (with pain). 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: Mastectomy - Present Medications Home Medications: Ambulatory Orders Medication Instructions Recorded Confirmed Amlodipine Besylate [Norvasc] 5 mg PO DAILY 08/11/21 09/29/21 - Allergies Allergies/Adverse Reactions: Allergies Allergy/AdvReac Type Severity Reaction Status Date / Time soy Allergy Unknown Verified 09/29/21 23:00 - Social History Does the pt smoke?: No Smoking Status: Never smoker Does the pt drink ETOH?: No Does the pt have substance abuse?: No - Immunizations Immunizations are current?: Yes - POLST Patient has POLST: No PD ED PE NORMAL - Vitals Vital signs reviewed: Yes (hypertensive ) - General General: Alert and oriented X 3, No acute distress, Well developed/nourished - HEENT HEENT: Atraumatic, PERRL, EOMI - Neck Neck: Supple, no meningeal sign, No bony TTP - Cardiac Cardiac: RRR, Other (2/6 holosystolic murmer ) - Respiratory Respiratory: No respiratory distress, Clear bilaterally - Abdomen Abdomen: Normal bowel sounds, Soft, Non tender, Non distended, No organomegaly - Back Back: No CVA TTP, No spinal TTP - Derm Derm: Normal color, Warm and dry, No rash - Extremities Extremities: No deformity, No edema - Neuro Neuro: Alert and oriented X 3, state's attorney 2-12 intact, No motor deficit, No sensory deficit, Normal speech Eye Opening: Spontaneous Motor: Obeys Commands Verbal: Oriented GCS Score: 15 - Psych Psych: Normal mood, Normal affect Results - Vitals Vitals: Vital Signs - 24 hr 11/14/21 11/14/21 11/14/21 00:09 00:18 01:00 Temperature 36.3 C L 36.3 C L Heart Rate 63 63 61 Respiratory 22 22 18 Rate Blood Pressure 177/78 H 177/78 H 136/55 H O2 Saturation 94 94 93 11/14/21 11/14/21 11/14/21 02:00 02:18 03:00 Temperature Heart Rate 64 77 76 Respiratory 18 22 19 Rate Blood Pressure 171/105 H 205/107 H 144/80 H O2 Saturation 92 94 94 11/14/21 11/14/21 11/14/21 03:15 04:21 04:52 Temperature 36.7 C 36.9 C Heart Rate 68 65 80 Respiratory 13 13 22 Rate Blood Pressure 144/80 H 152/80 H 161/79 H O2 Saturation 94 98 95 Oxygen O2 Source Room air - EKG (time done) 0011 Rate: Rate (enter#) (65) Rhythm: NSR Intervals: Prolonged [place] QRS: LVH (with strain) Compare to prior EKG: Unchanged from prior EKG (SPT 10-30-2021 no sig change. ) Computer interpretation: Agree with computer 0214 Rate: Rate (enter#) (70) Rhythm: NSR, LAE Intervals: Prolonged [place] QRS: LVH (with strain ) Compare to prior EKG: Unchanged from prior EKG (SPT today no changes with pain ) Computer interpretation: Agree with computer - Labs Labs: Laboratory Tests 11/14/21 11/14/21 11/14/21 00:20 00:20 00:20 WBC 8.1 RBC 4.10 L Hgb 13.2 Hct 39.9 MCV 97.3 MCH 32.2 H MCHC 33.1 RDW 13.1 Plt Count 175 MPV 10.9 H Neut # (Auto) 4.5 Lymph # (Auto) 2.7 [place] # (Auto) 0.5 Eos # (Auto) 0.2 Baso # (Auto) 0.1 Absolute Nucleated RBC 0.00 Nucleated RBC % 0.0 Sodium 134 L Potassium 4.1 Chloride 99 L Carbon Dioxide 24 Anion Gap 11.0 BUN 19 Creatinine 0.8 Estimated GFR (MDRD) 68 L Glucose 182 H Calcium 9.3 Total Bilirubin 0.7 AST 18 ALT 14 Alkaline Phosphatase 63 Troponin I High Sens 164.2 H* Total Protein 7.0 Albumin 3.5 Globulin 3.5 Albumin/Globulin Ratio 1.0 Lipase 21 L Nasal Adenovirus (PCR) Nasal B. parapertussis DNA (PCR) Nasal Coronavir 229E PCR Nasal Coronavir HKU1 PCR Nasal Coronavir NL63 PCR Nasal Coronavir OC43 PCR Nasal Enterovir/Rhinovir PCR Nasal Influenza B PCR Nasal Influenza A PCR Nasal Parainfluen 1 PCR Nasal Parainfluen 2 PCR Nasal Parainfluen 3 PCR Nasal Parainfluen 4 PCR Nasal RSV (PCR) Nasal B.pertussis DNA PCR Nasal C.pneumoniae (PCR) [place] Human Metapneumo PCR Nasal M.pneumoniae (PCR) Nasal SARS-CoV-2 (PCR) 11/14/21 11/14/21 01:35 02:55 WBC RBC Hgb Hct MCV MCH MCHC RDW Plt Count MPV Neut # (Auto) Lymph # (Auto) [place] # (Auto) Eos # (Auto) Baso # (Auto) Absolute Nucleated RBC Nucleated RBC % Sodium Potassium Chloride Carbon Dioxide Anion Gap BUN Creatinine Estimated GFR (MDRD) Glucose Calcium Total Bilirubin AST ALT Alkaline Phosphatase Troponin I High Sens 140.8 H* Total Protein Albumin Globulin Albumin/Globulin Ratio Lipase Nasal Adenovirus (PCR) NOT DETECTED Nasal B. parapertussis DNA (PCR) NOT DETECTED Nasal Coronavir 229E PCR NOT DETECTED Nasal Coronavir HKU1 PCR NOT DETECTED Nasal Coronavir NL63 PCR NOT DETECTED Nasal Coronavir OC43 PCR NOT DETECTED Nasal Enterovir/Rhinovir PCR NOT DETECTED Nasal Influenza B PCR NOT DETECTED Nasal Influenza A PCR NOT DETECTED Nasal Parainfluen 1 PCR NOT DETECTED Nasal Parainfluen 2 PCR NOT DETECTED Nasal Parainfluen 3 PCR NOT DETECTED Nasal Parainfluen 4 PCR NOT DETECTED Nasal RSV (PCR) NOT DETECTED Nasal B.pertussis DNA PCR NOT DETECTED Nasal C.pneumoniae (PCR) NOT DETECTED [place] Human Metapneumo PCR NOT DETECTED Nasal M.pneumoniae (PCR) NOT DETECTED Nasal SARS-CoV-2 (PCR) NOT DETECTED - Rads (name of study) chest Radiology: Prelim report reviewed (Impression: Interstitial prominence, mildly reduced inspiratory volume. This may reflect presence of mild or early pneumonia such as atypical or viral pneumonia.), EMP read indepedently, See rad report Procedures - IVC sono (time) 0110 Bedside IVC sono: IVC measures (cm) (0.63), IVC collapsed c insp (cm) (complete), Profound dehydration (est 3 liter deficit) PD MEDICAL DECISION MAKING - ED course Complexity details: reviewed old records, reviewed results, re-evaluated patient, considered differential, d/w patient, d/w family (Daughter Melvi [phone] updated on transfer to [facility]) ED course: 86 y/o female with episode of chest pain at rest has NSTEMI. She has a history of aortic stenosis and today we have found her to be "profoundly" dehydrated by interrogation of the IVC with an estimated deficit of 3+ liters. She is administered saline. She has previously refused to be admitted into the hospital for any consideration of abnormality to her heart. She is refusing catheteriz ation or bypass operation stenting or repair of her aortic valve. I suspect today's infarction is related to poor filling pressures with reduced volume and aortic stenosis. She is hydrated in the ED and develops chest pain again with a spike in blood pressure and she is administered nitro paste with reduction in pressure and resolution of pain. She is agreeable to transfer to see the personal loan specialist. Spoke to Yonas Macias. Departure - Departure Disposition: 02 Transfer Acute Care Hosp Clinical Impression: NSTEMI (non-ST elevated myocardial infarction), Dehydration determined by examination Condition: Stable
[2021-11-14 00:38] LABS: ALBUMIN 3.5 g/dL (3.2-5.5); BILIRUBIN,TOTAL 0.7 mg/dL (0.2-1.0); CALCIUM 9.3 mg/dL (8.5-10.3); CREATININE 0.8 mg/dL (0.4-1.0); POTASSIUM 4.1 mmol/L (3.5-5.0)
[2021-11-14] MEDS ORDERED: SODIUM CHLORIDE 0.9% 1,000 ML IV STA ×2 (01:09→01:10)
--- NOTE | 2021-11-14 01:22 | XRAY Report ---
PROCEDURE: Chest 1 View X-Ray INDICATIONS: chest pain TECHNIQUE: One view of the chest was acquired. COMPARISON: Surgical clips suggestive of prior breast carcinoma surgery on the right FINDINGS: Surgical changes and devices: None. Lungs and pleura: No pleural effusions or pneumothorax. Lungs are abnormal with a mild interstitial prominence not previously present 10/30/2021-this may represent atypical/viral pneumonia. Mediastinum: Mediastinal contours appear normal. Heart size is normal. Bones and chest wall: No suspicious bony lesions. Overlying soft tissues appear unremarkable. IMPRESSION: Interstitial prominence, mildly reduced inspiratory volume. This may reflect presence of mild or herb y pneumonia such as atypical/viral pneumonia. Reviewed by: Bravo Little MD on 11/14/2021 1:21 AM PST Approved by: Bravo Little MD on 11/14/2021 1:21 AM PST Station ID: [id number]
[2021-11-14] MEDS ORDERED: HEPARIN 25000UNITS/500ML (D5W) 25,000 UNIT/500 ML BAG IV SCH (02:00)
[2021-11-14] MEDS ORDERED: NITROGLYCERIN 2% PASTE TOP STA ×2 (02:16→02:20)
[2021-11-14] MEDS ORDERED: ONDANSETRON 4 MG/2 ML VIAL IVP STA (02:20)
[2021-11-14 02:24] LABS: B. PARAPERTUSSIS- RESP PCR PAN NOT DETECTED; B. PERTUSSIS- RESP PCR PANEL NOT DETECTED; C. PNEUMONIAE- RESP PCR PANEL NOT DETECTED; CORONAVIRUS 229E-RESP PCR NOT DETECTED; CORONAVIRUS HKU1-RESP PCR NOT DETECTED; CORONAVIRUS NL63-RESP PCR NOT DETECTED; CORONAVIRUS OC43-RESP PCR NOT DETECTED; HUMAN METAPNEUMOVIRUS NOT DETECTED; INFLUENZA A- RESP PCR PANEL NOT DETECTED; INFLUENZA B - RESP PCR PANEL NOT DETECTED; M. PNEUMONIAE- RESP PCR PANEL NOT DETECTED; PARAINFLUENZA VIRUS 1 NOT DETECTED; PARAINFLUENZA VIRUS 2 NOT DETECTED; PARAINFLUENZA VIRUS 3 NOT DETECTED; PARAINFLUENZA VIRUS 4 NOT DETECTED; RHINOVIRUS/ENTEROVIRUS NOT DETECTED; RSV- RESP PCR PANEL NOT DETECTED; SARS-CoV-2 -RESP PCR PANEL NOT DETECTED
[2021-11-14] MEDS ORDERED: ASPIRIN CHEW 81 MG TABLET PO STA (05:04)
[2021-11-14 06:34] VITALS: BP 150/91
== END 2021-11-14 06:36 | disposition short-term general hospital (02) ==
LOC: EDUNIT# → SUPCPDRO 00:02 → ED 00:02
DX: I21.4 Non-ST elevation (NSTEMI) myocardial infarction (principal); E86.0 Dehydration; I35.0 Nonrheumatic aortic (valve) stenosis; I25.10 Atherosclerotic heart disease of native coronary artery without angina pectoris; I10 Essential (primary) hypertension; F03.90 Unspecified dementia, unspecified severity, without behavioral disturbance, psychotic disturbance, mood disturbance, and anxiety; Z20.822 Contact with and (suspected) exposure to COVID-19
CPT/HCPCS: 36415; 71045; 80053; 83690; 84484; 85025; 87631; 93005; 96361; 96365; 96366; 96375; 96376; 99284; 99285; A9270; 0202U

== ENCOUNTER 2021-12-16 08:00 | Outpatient (CLI) | payer MEDICARE, OTHER ==
--- NOTE | 2021-12-17 08:31 | XRAY Report ---
PROCEDURE: Cervical Spine 2 View INDICATIONS: CERVICAL RADICULOPATHY TECHNIQUE: 4 view(s) of the cervical spine were acquired. COMPARISON: None. FINDINGS: C-SPINE: No acute, displaced fracture or malalignment. The patient is status post anterior cervical f ixation with discectomy at C3-4 as well as corpectomy at C6-7. No hardware compromise is appreciated. SOFT TISSUES: No prevertebral soft tissue thickening. IMPRESSION: 1.No acute osseous abnormality of the cervical spine. Reviewed by: Po Pierce MD on 12/17/2021 8:30 AM PDT Approved by: Po Pierce MD on 12/17/2021 8:30 AM PDT Station ID: [id number]
== END 2021-12-16 23:59 ==
LOC: DI.N 08:00
PROVIDERS: ATTEND Family Medicine
DX: M54.12 Radiculopathy, cervical region (principal)

== ENCOUNTER 2022-02-05 12:43 | Emergency (ER) | payer MEDICARE, OTHER ==
--- OUTSIDE RECORDS SUMMARY | 2022-02-05 13:05 | EXTERNAL MEDICAL SUMMARY RPT | Continuity of Care Document ---
:1935 Author Organization [facility] Address [address] [place] [address] Phone Allergies No information. Encounters No information. Medications No information. Problems date description facility [id number] Nonrheumatic aortic (valve) stenosis [facility] [id number] [facility] Results No information.
[2022-02-05] MEDS ORDERED: CHERRY SYRUP 10 ML UDC PO ONE (13:07)
[2022-02-05] MEDS ORDERED: KETOROLAC 30 MG/ML VIAL IM STA (13:07)
[2022-02-05] MEDS ORDERED: DEXAMETHASONE 10 MG/ML VIAL PO STA (13:07)
--- NOTE | 2022-02-05 14:42 | XRAY Report ---
PROCEDURE: Hip w/Pelvis 2-3V LT INDICATIONS: trochanter pain TECHNIQUE: AP pelvis with lateral view(s) of the left hip(s). COMPARISON: X-ray lumbar spine, 11/28/2020. FINDINGS: Bones: No fractures or dislocations. Pelvic ring appears intact. No suspicious bony lesions. Mode rate hip and sacroiliac joint degeneration bilaterally. Severe degenerative disc and facet disease in lumbar spine. Soft tissues: The visualized bowel gas pattern is normal. No suspicious soft tissue calcifications. IMPRESSION: 1. No definitive fracture. Because of presence of moderate degenerative joint disease, subtle fractur e could be obscured. If there is history of trauma, CT or MRI would be helpful. 2. Moderate hip and sacroiliac joint degeneration bilaterally. 3. Severe degenerative disc and facet disease in lumbar spine. Reviewed by: Leslie Angel MD on 02/05/2022 1:41 PM DEO Approved by: Leslie Angel MD on 02/05/2022 1:41 PM AKDT Station ID: [id number]
--- NOTE | 2022-02-05 15:03 | ED Physician Documentation ---
History of Present Illness - Stated complaint Stated Complaint: L HIP PX - Chief complaint Chief Complaint: Ext Problem - History obtained from History obtained from: Patient, Family - History of Present Illness Timing: Last night - Additonal information Additional information: 86-year-old female with a history of lumbar disc disease has developed pain in her left hip that is severe she states this seemed to come on out of nowhere and is a 10 out of 10 pain. She went into the urgent care yesterday they were unable to get an x-ray they gave her some pain medication which she states did not help she does not want more. She has some radiation of the pain down the lateral aspect of her thigh she does not have numbness or tingling. Review of Systems Constitutional: denies: Fever Respiratory: denies: Cough GI: denies: Vomiting, Diarrhea : denies: Dysuria, Frequency Skin: denies: Rash Musculoskeletal: reports: Back pain, Joint pain, Pain with weight bearing. 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 - Past Surgical History Past Surgical History: Yes /NEONATAL ICU COORDINATOR: Mastectomy - Present Medications Home Medications: Ambulatory Orders Medication Instructions Recorded Confirmed Amlodipine Besylate [Norvasc] 5 mg PO DAILY 08/11/21 09/29/21 Meloxicam [Mobic] 7.5 mg PO BID PRN #20 tablet 02/05/22 - Allergies Allergies/Adverse Reactions: Allergies Allergy/AdvReac Type Severity Reaction Status Date / Time soy Allergy Unknown Verified 02/05/22 12:55 - Social History Does the pt smoke?: No Smoking Status: Never smoker Does the pt drink ETOH?: No Does the pt have substance abuse?: No - Immunizations Immunizations are current?: Yes - POLST Patient has POLST: No PD ED PE NORMAL - Vitals Vital signs reviewed: Yes (Hypertensive) - General General: Alert and oriented X 3, No acute distress, Well developed/nourished - HEENT HEENT: Atraumatic, PERRL, EOMI - Respiratory Respiratory: No respiratory distress - Derm Derm: Normal color, Warm and dry, No rash - Extremities Extremities: No deformity, Other (There is some point tenderness over the trochanter on the left side this does not reproduce the pain the patient is having. 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 No definite fracture. Because of the presence of moderate degenerative joint disease, subtle fracture could be obscured. If there is any history of trauma, CT or MRI would be helpful. ), Final report received (Moderate hip and sacroiliac joint degeneration bilaterally severe severe degenerative disc and facet disease in the lumbar spine.), EMP read indepedently, See rad report PD MEDICAL DECISION MAKING - ED course Complexity details: reviewed results, re-evaluated patient, considered differential, d/w patient, d/w family ED course: 86-year-old female with chronic lumbar pain has developed acute pain in the left hip that seems to have come out of nowhere. She denies an injury to the area and on examination she has minimal tenderness. I suspected this may be sciatica instead and treated her with dexamethasone and Toradol. She seemed to have some improvement in her pain but denied any increase in comfort. She simply stated that she does not get any relief from any kind of pain medication. We did x-ray of the left hip and found there to be severe degenerative joint disease. There has been no trauma and CT scanning or MRI were not entertained. I have made a referral for the patient to see orthopedics and we will provide some meloxicam for pain. Departure - Departure Disposition: 01 Home, Self Care Clinical Impression: Degenerative joint disease of left hip Qualifiers: Osteoarthritis type: unspecified Qualified Code(s): M16.12 - Unilateral primary osteoarthritis, left hip Condition: Stable Instructions: ED Degenerative Joint Disease Follow-Up: Matt Jane DO [Primary Care Provider] - Mark Mike MD [Provider Admit Priv/Credential] - Prescriptions: Meloxicam [Mobic] 7.5 mg PO BID PRN #20 tablet PRN Reason: Pain Comments: Crystal, today it looks like there is severe degenerative disease in your left hip joint. There is a referral to see the orthopedic doctor. Call his office to make an appointment. I have E scribed some meloxicam to the [facility] in [place]. Discharge Date/Time: 02/05/22 15:17
[2022-02-05 15:17] VITALS: BP 185/78
== END 2022-02-05 15:17 | disposition home or self-care (01) ==
LOC: ED 12:43
DX: M16.12 Unilateral primary osteoarthritis, left hip (principal); M54.50 Low back pain, unspecified; G89.29 Other chronic pain; I10 Essential (primary) hypertension
CPT/HCPCS: 73502; 96372; 99283; 99284; A9270

== ENCOUNTER 2022-02-07 14:06 | Outpatient (CLI) | payer MEDICARE, OTHER | END 2022-02-07 14:07 | disposition home or self-care (01) | LOC: EMS 14:06 | DX: S06.9X9A Unspecified intracranial injury with loss of consciousness of unspecified duration, initial encounter (principal); W01.0XXA Fall on same level from slipping, tripping and stumbling without subsequent striking against object, initial encounter; Y92.002 Bathroom of unspecified non-institutional (private) residence as the place of occurrence of the external cause; Z79.02 Long term (current) use of antithrombotics/antiplatelets | CPT/HCPCS: A0425; A0429 ==

== ENCOUNTER 2022-02-07 14:27 | Emergency (ER) | payer MEDICARE, OTHER ==
[2022-02-07] MEDS ORDERED: GABAPENTIN 100 MG CAPSULE PO STA (14:44)
--- OUTSIDE RECORDS SUMMARY | 2022-02-07 14:46 | EXTERNAL MEDICAL SUMMARY RPT | Continuity of Care Document ---
:1935 Author Organization [facility] Address [address] [place] [address] Phone Allergies No information. Encounters No information. Medications No information. Problems date description facility [id number] Nonrheumatic aortic (valve) stenosis [facility] [id number] [facility] Results No information.
--- NOTE | 2022-02-07 14:47 | ED Physician Documentation ---
PD HPI MAJOR TRAUMA - Stated complaint Stated Complaint: GLF - Chief complaint Chief Complaint: Trauma Hd/Nk - History obtained from History obtained from: Patient - Additional information Additional information: 86-year-old woman got up to go to the bathroom this morning and tripped in the bathroom. She hit her head on the shower and had loss of consciousness. Nursing notes say for an hour but she actually does not know for how long. She denies headache or vomiting but since she is on Plavix family encouraged her to come in. Her only complaint right now is chronic hip pain not worse than it has been. She took a hydrocodone at 1230 for that. 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 - Present Medications Home Medications: Ambulatory Orders Medication Instructions Recorded Confirmed Amlodipine Besylate [Norvasc] 5 mg PO DAILY 08/11/21 09/29/21 Meloxicam [Mobic] 7.5 mg PO BID PRN #20 tablet 02/05/22 Acetaminophen [Tylenol] 325 mg MD ONCE 02/07/22 02/07/22 Aspirin Chewable [St Sukhdev 02/07/22 Aspirin] Clopidogrel [Plavix] 02/07/22 Famotidine [Pepcid] 02/07/22 Gabapentin [Neurontin] 100 mg PO TID PRN #30 cap 02/07/22 Lisinopril [Zestril] 02/07/22 Multivitamin W/Minerals [Theragran 02/07/22 M] Nitroglycerin [Nitrostat] 02/07/22 Oxycodone HCl/Acetaminophen 1 - 2 each PO Q6H PRN #20 tablet 02/07/22 [Percocet 5-325 mg Tablet] Pantoprazole Sodium [Protonix] 02/07/22 carvediloL [Coreg] 02/07/22 methocarbamoL [Methocarbamol] 325 tablet PO TID PRN 02/07/22 02/07/22 - Allergies Allergies/Adverse Reactions: Allergies Allergy/AdvReac Type Severity Reaction Status Date / Time soy Allergy Unknown Verified 02/07/22 14:34 - Social History Does the pt smoke?: No Smoking Status: Never smoker Does the pt drink ETOH?: No Does the pt have substance abuse?: No - Immunizations Immunizations are current?: Yes - POLST Patient has POLST: No PD ED PE NORMAL - Vitals Vital signs reviewed: Yes - General General: Alert and oriented X 3, No acute distress - HEENT HEENT: PERRL, EOMI - Neck Neck: Supple, no meningeal sign, No bony TTP - Cardiac Cardiac: RRR (With loud metallic mechanical closing click/S2) - Abdomen Abdomen: Soft, Non tender - Back Back: No CVA TTP, No spinal TTP - Derm Derm: Normal color, Warm and dry - Extremities Extremities: No edema, No calf tenderness / cord - Neuro Neuro: Alert and oriented X 3, Normal speech Results - Vitals Vitals: Vital Signs - 24 hr 02/07/22 02/07/22 02/07/22 14:43 15:34 16:00 Temperature 36.1 C L Heart Rate 58 L 57 L 66 Respiratory 19 15 16 Rate Blood Pressure 231/87 H 169/70 H 169/70 H O2 Saturation 97 96 96 02/07/22 16:29 Temperature Heart Rate 66 Respiratory 19 Rate Blood Pressure 169/70 H O2 Saturation 96 Oxygen O2 Source Room air PD MEDICAL DECISION MAKING - ED course ED course: 86-year-old woman fell and hit her head. She is on Plavix so was brought in as a modified trauma. Relevant imaging was negative. Daughter called on the phone and quite concerned about pain control. We had several discussions and initially she wanted me to prescribe her Dilaudid but later oxycodone. We discussed the pitfalls of narcotic pain control at this age but she is in severe pain due to her hip and nonfunctional due to it. There was no trauma to the hip. Departure - Departure Disposition: 01 Home, Self Care Clinical Impression: Injury of head and neck Qualifiers: Encounter type: initial encounter Qualified Code(s): S09.90XA - Unspecified in jury of head, initial encounter Condition: Good Record reviewed to determine appropriate education?: Yes Instructions: ED Head Injury Closed Prescriptions: Gabapentin [Neurontin] 100 mg PO TID PRN #30 cap PRN Reason: hip pain Oxycodone HCl/Acetaminophen [Percocet 5-325 mg Tablet] 1 - 2 each PO Q6H PRN #20 tablet PRN Reason: pain Comments: You were seen today for a head injury. CT of the head and neck were without evidence of serious trauma. He did get some relief with your chronic hip pain with a low-dose gabapentin here and I sent a prescription for that to [facility] in [place]. Call your doctor to arrange a follow-up appointment, make the next available a ppointment. In the interim, return anytime if worse or if new symptoms develop. I am prescribing a short course of narcotic pain medication for you. These are potentially dangerous and addictive medications that should be used carefully. These medications may constipate you. Take an icia-voq-rljbnhy stool softener (docusate) twice daily with plenty of water while taking these medications. If you go 24 hours without a bowel movement, take bzxf-rit-fmebffe miralax, per package instructions. Do not drink or drive while taking these medications. If you received narcotic or sedating medications while in the emergency department, do not drive for 24 hours. Store this medication in a safe, secure place and out of reach of children. It is a violation of federal law to give or sell this medication to another person or to use in a manner other than prescribed. The ED will not refill narcotic prescriptions, including prescriptions lost or stolen. To dispose of unwanted medications: 1. [facility] at [address] in [place] has a medication drop box. They accept prescription medications (in pill form) Monday through Monday 9:00 a.m. to 5:00 p.m. 2. The [facility] [employer] accepts prescription medications (in pill form only) for disposal year round. Call for more information. 3. Contact the [facility] for the next [facility] sponsored prescription drug collection event. , [phone], or [phone]; Note that many narcotic pain relievers also contain Tylenol/acetaminophen. Please ensure that your total dose of acetaminophen from all sources does not exceed 3 g (3000 mg) per day. Discharge Date/Time: 02/07/22 16:34
--- NOTE | 2022-02-07 15:19 | CT Report ---
PROCEDURE: CERVICAL SPINE WO INDICATIONS: head injury TECHNIQUE: Noncontrast 3 mm thick sections acquired from the skull base to the T4 level. Sagittal and coronal r eformats were then constructed. For radiation dose reduction, the following was used: automated exp osure control, adjustment of mA and/or kV according to patient size. COMPARISON: X-ray cervical spine, 12/16/2021. FINDINGS: Image quality: Excellent. Bones: No fractures or dislocations. There are postsurgical changes related to discectomy and anter ior fusion at C3-C5. There is corpectomy and bone graft at C6-C7. There is grade 1 anterolisthesis of C7 on T1. Degenerative disc disease is present, moderate at C2-C3 and C7-T1. The lateral facet arthr opathy at C2-C3, severe on the right and moderate on the left. Moderate atlantoaxial joint degenerati on. Visualized superior ribs are intact. Soft tissues: Prevertebral soft tissues are normal in thickness. No paravertebral hematomas. No ap ical pneumothoraces. IMPRESSION: 1. No acute cervical spine injuries. 2. Postsurgical and degenerative changes as described. Reviewed by: Leslie Angel MD on 02/07/2022 2:18 PM DEO Approved by: Leslie Angel MD on 02/07/2022 2:18 PM DEO Station ID: [id number]
--- NOTE | 2022-02-07 15:23 | CT Report ---
PROCEDURE: HEAD WO INDICATIONS: head injury TECHNIQUE: Noncontrast 4.5 mm thick angled axial sections acquired from the foramen magnum to the vertex. For r adiation dose reduction, the following was used: automated exposure control, adjustment of mA and/or kV according to patient size. COMPARISON: None. FINDINGS: Image quality: Excellent. CSF spaces: Basal cisterns are patent. No extra-axial fluid collections. Ventricles are normal in size and shape. Brain: No midline shift. No intracranial masses or hemorrhage. Mild cerebral volume loss and perive ntricular white matter chronic small vessel ischemic changes are present. Skull and face: Calvarium and visualized facial bones are intact, without suspicious lesions. Hyper ostosis frontalis. Sinuses: Visualized sinuses and mastoids are clear. IMPRESSION: No acute intracranial abnormalities. No skull fractures. Reviewed by: Leslie Angel MD on 02/07/2022 2:21 PM AKKELVIN Approved by: Leslie Angel MD on 02/07/2022 2:21 PM AKDT Station ID: [id number]
[2022-02-07 15:41] VITALS: BP 169/70
[2022-02-07] MEDS ORDERED: HYDROmorphone 2 MG TABLET PO STA (16:22)
== END 2022-02-07 16:34 | disposition home or self-care (01) ==
LOC: EDSEX → ED 14:27
DX: S09.90XA Unspecified injury of head, initial encounter (principal); W01.198A Fall on same level from slipping, tripping and stumbling with subsequent striking against other object, initial encounter; Y92.002 Bathroom of unspecified non-institutional (private) residence as the place of occurrence of the external cause; I10 Essential (primary) hypertension
CPT/HCPCS: 70450; 72125; 99283; 99284; A9270

== ENCOUNTER 2022-02-09 16:03 | Outpatient (CLI) | payer MEDICARE, OTHER | END 2022-02-09 16:04 | disposition EMS.NT | LOC: EMS 16:03 | DX: M25.559 Pain in unspecified hip (principal) ==

== ENCOUNTER 2022-02-09 19:43 | Observation (INO) | payer MEDICARE, OTHER ==
--- OUTSIDE RECORDS SUMMARY | 2022-02-09 20:00 | EXTERNAL MEDICAL SUMMARY RPT | Continuity of Care Document ---
:1935 Author Organization [place] Address [address] [place] [address] Phone Allergies No information. Encounters No information. Medications No information. Problems date description facility [id number] Nonrheumatic aortic (valve) stenosis [facility] [id number] [facility] Results No information.
[2022-02-09] MEDS ORDERED: HYDROmorphone 1 MG/ML CARPUJECT IVP STA (20:04)
[2022-02-09] MEDS ORDERED: diazePAM INJ 5 MG/ML SYRINGE IVP STA (20:04)
--- NOTE | 2022-02-09 20:10 | ED Physician Documentation ---
History of Present Illness - Stated complaint Stated Complaint: LEFT HIP PX - Chief complaint Chief Complaint: Trauma Ext - History obtained from History obtained from: Patient, Family - History of Present Illness Pain level max: 10 Pain level now: 10 - Additonal information Additional information: Patient is an 86-year-old female who presents to the emergency department left hip pain. This been ongoing for the past several days. Initially she was having left hip pain and was seen here 5 days ago. X-ray at that time did not show a definite fracture. There was an unclear history of potential trauma or not. Her pain seemed improved, so she did go home. 2 days later she slipped fell and hit her head. Negative head CT and cervical spine CT at that time. Her left hip pain has continued to worsen since that time and she is now unable to walk on that side. She was prescribed Dilaudid but took this once and said it did not help so she is no longer taking it. She does have oxycodone, and took that about 6 hours ago. Family states that she stays hunched over most of the time because it hurts to straighten out the left leg. No numbness or tingling. She does not believe that she hit her hip 2 days ago, but is unsure. 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 - Present Medications Home Medications: Ambulatory Orders Medication Instructions Recorded Confirmed Meloxicam [Mobic] 7.5 mg PO BID PRN #20 tablet 02/05/22 02/09/22 Acetaminophen [Tylenol] 325 mg NV ONCE 02/07/22 02/07/22 Aspirin Chewable [St Sukhdev 81 mg PO DAILY 02/07/22 02/09/22 Aspirin] Clopidogrel [Plavix] 75 mg PO DAILY 02/07/22 Famotidine [Pepcid] 20 mg PO DAILY 02/07/22 02/09/22 Gabapentin [Neurontin] 100 mg PO TID PRN #30 cap 02/07/22 02/09/22 Lisinopril [Zestril] 40 mg PO DAILY 02/07/22 02/09/22 Multivitamin W/Minerals [Theragran 1 tab PO DAILY 02/07/22 02/09/22 M] Nitroglycerin [Nitrostat] 02/07/22 Oxycodone HCl/Acetaminophen 1 - 2 each PO Q6H PRN #20 tablet 02/07/22 02/09/22 [Percocet 5-325 mg Tablet] Pantoprazole Sodium [Protonix] 1 tab PO DAILY 02/07/22 02/09/22 carvediloL [Coreg] 12.5 mg PO DAILY 02/07/22 02/09/22 - Allergies Allergies/Adverse Reactions: Allergies Allergy/AdvReac Type Severity Reaction Status Date / Time soy Allergy Unknown Verified 02/09/22 19:53 - Social History Does the pt smoke?: No Smoking Status: Never smoker Does the pt drink ETOH?: No Does the pt have substance abuse?: No - Immunizations Immunizations are current?: Yes - POLST Patient has POLST: No PD ED PE NORMAL - Vitals Vital signs reviewed: Yes - General General: Alert and oriented X 3, Other (Appears in pain) - HEENT HEENT: PERRL, Moist mucous membranes - Neck Neck: Supple, no meningeal sign - Cardiac Cardiac: RRR, Strong equal pulses - Respiratory Respiratory: No respiratory distress, Clear bilaterally - Abdomen Abdomen: Soft, Non tender, Non distended - Derm Derm: Warm and dry - Extremities Extremities: Other (TTP over the L hip. Unable to range the hip at all 2/2 pain. held in flexion. NVI.) - Neuro Neuro: Alert and oriented X 3 - Psych Psych: Normal mood, Normal affect Results - Vitals Vitals: Vital Signs - 24 hr 02/09/22 02/09/22 02/09/22 19:48 20:35 21:17 Temperature 36.8 C Heart Rate 63 18 L 63 Respiratory 14 16 16 Rate Blood Pressure 136/79 H 178/75 H 149/43 H O2 Saturation 98 95 96 02/09/22 21:44 Temperature 36.2 C L Heart Rate 64 Respiratory 16 Rate Blood Pressure 135/47 H O2 Saturation 95 Oxygen O2 Source Room air - Labs Labs: Laboratory Tests 02/09/22 02/09/22 20:10 20:10 WBC 11.1 H RBC 4.02 L Hgb 12.6 Hct 37.1 MCV 92.3 MCH 31.3 H MCHC 34.0 RDW 12.5 Plt Count 231 MPV 9.9 Neut # (Auto) 7.6 H Lymph # (Auto) 2.4 [place] # (Auto) 0.9 Eos # (Auto) 0.3 Baso # (Auto) 0.0 Absolute Nucleated RBC 0.00 Nucleated RBC % 0.0 Sodium 127 L Potassium 4.0 Chloride 89 L Carbon Dioxide 27 Anion Gap 11.0 BUN 58 H Creatinine 2.0 H Estimated GFR (MDRD) 24 L Glucose 177 H Calcium 9.2 Total Bilirubin 0.5 AST 16 ALT 16 Alkaline Phosphatase 62 Total Protein 7.9 Albumin 3.9 Globulin 4.0 Albumin/Globulin Ratio 1.0 - Rads (name of study) Left hip CT Radiology: Final report received, EMP read contemporaneously, See rad report PD MEDICAL DECISION MAKING - ED course Complexity details: reviewed results, re-evaluated patient (pain improved, but still having pain and unable to walk), considered differential, d/w patient, d/w family, d/w cancer program consultant ED course: 86-year-old female with significant left hip pain was given IV Dilaudid and Valium. Feels better. Is still not able to move the hip well. Hip CT does not show any acute fractures but does show severe arthritis. Discussed the case with Dr. Mike, orthopedics on-call who recommends asking radiology in the morning if they can potentially do a steroid injection into the hip under fluoroscopy. Patient will stay in the emergency department overnight for continued pain control and for discussion with radiology in the morning regarding a intra-articular steroid injection. Hopefully this will provide enough pain relief that she can go home and follow-up with orthopedics as an outpatient. Patient will be signed out to the [facility] emergency department physician. This document was made in part using voice recognition software. While efforts are made to proofread this document, sound alike and grammatical errors may occur. Departure - Departure Clinical Impression: Acute pain Hip osteoarthritis Qualifiers: Osteoarthritis type: unspecified Laterality: left Qualified Code(s): M16.12 - Unilateral primary osteoarthritis, left hip Condition: Stable
[2022-02-09 20:18] LABS: BASOPHILS % (AUTO) 0.4 %; EOSINOPHILS # (AUTO) 0.3 10^3/uL (0.0-0.7); EOSINOPHILS % (AUTO) 2.2 %; HCT - HEMATOCRIT 37.1 % (37.0-47.0); HGB - HEMOGLOBIN 12.6 g/dL (12.0-16.0); LYMPHOCYTES # (AUTO) 2.4 10^3/uL (1.5-3.5); LYMPHOCYTES % (AUTO) 21.1 %; MEAN CORPUSCULAR HEMOGLOBIN 31.3 pg (27.0-31.0); MEAN CORPUSCULAR VOLUME 92.3 fL (81.0-99.0); MEAN PLATELET VOLUME 9.9 fL (7.9-10.8); MONOCYTES # (AUTO) 0.9 10^3/uL (0.0-1.0); NEUTROPHILS # (AUTO) 7.6 10^3/uL (1.5-6.6); NEUTROPHILS % (AUTO) 67.9 %; PLT - PLATELET COUNT 231 10^3/uL (130-450); RED BLOOD COUNT 4.02 10^6/uL (4.20-5.40); RED CELL DISTRIBUTION WIDTH 12.5 % (12.0-15.0); WHITE BLOOD COUNT 11.1 x10^3/uL (4.8-10.8)
[2022-02-09 20:29] LABS: ALBUMIN 3.9 g/dL (3.2-5.5); BILIRUBIN,TOTAL 0.5 mg/dL (0.2-1.0); CALCIUM 9.2 mg/dL (8.5-10.3); TOTAL PROTEIN 7.9 g/dL (6.7-8.2)
[2022-02-09] MEDS ORDERED: SODIUM CHLORIDE 0.9% 1,000 ML IV STA ×2 (21:59)
--- NOTE | 2022-02-09 22:07 | ED Physician Documentation ---
ED Addendum - Addendum Addendum: 02/09/22 22:[address] De La Fuente regarding hyponatremia, acute kidney injury and pain not controlled with oral dilaudid and oral oxycodone. We will place in observation for further care. Departure - Departure Disposition: ED Place in Observation Clinical Impression: Acute pain, Hyponatremia, Acute renal insufficiency Hip osteoarthritis Qualifiers: Osteoarthritis type: unspecified Laterality: left Qualified Code(s): M16.12 - Unilateral primary osteoarthritis, left hip Condition: Stable
--- NOTE | 2022-02-09 22:14 | CT Report ---
PROCEDURE: LOWER EXTREMITY WO - LT INDICATIONS: L hip pain s/p fall TECHNIQUE: Noncontrast 3 mm axial sections acquired through the symptomatic hip joint, with coronal and sagittal reformats. For radiation dose reduction, the following was used: automated exposure control, adjus tment of mA and/or kV according to patient size. COMPARISON: X-ray 02/15/2022. FINDINGS: Image quality: Excellent. Bones: No fracture or dislocation. The visualized bony pelvis also demonstrates no discrete fracture . There is severe superior joint space narrowing in the left hip with subchondral sclerosis and cysti c changes. There is also severe osteophytosis. The visualized lower lumbar spine demonstrates moderat e to severe degenerative disc disease and facet arthropathy. There is grade 1 anterolisthesis at L4-5 . There is osteopenia. Soft tissues: There is a small joint body medially in the left hip joint measuring approximately 0.7 cm. No discrete loculated fluid collections. There is mild atrophy of the visualized musculature. No intracranial free fluid within the visualized pelvis. Colonic diverticulosis is noted. IMPRESSION: 1. No fracture or dislocation. 2. Severe osteoarthritic changes of the left hip. 3. Small calcified joint body medially in the left hip joint. Reviewed by: Ronnie Garces MD on 02/09/2022 10:13 PM PDT Approved by: Ronnie Garces MD on 02/09/2022 10:13 PM PDT Station ID: [id number]
[2022-02-09] MEDS ORDERED: ONDANSETRON ODT 4 MG TABLET TL PRN (22:32)
[2022-02-09] MEDS ORDERED: ONDANSETRON 4 MG/2 ML VIAL IVP PRN (22:32)
[2022-02-09] MEDS ORDERED: SODIUM CHLORIDE FLUSH 0.9% 10 ML SYRINGE IVP PRN (22:32)
[2022-02-09] MEDS: SODIUM CHLORIDE 0.9% 1,000 ML IV SCH (23:04)
[2022-02-09 23:13] LABS: B. PARAPERTUSSIS- RESP PCR PAN NOT DETECTED; B. PERTUSSIS- RESP PCR PANEL NOT DETECTED; C. PNEUMONIAE- RESP PCR PANEL NOT DETECTED; CORONAVIRUS 229E-RESP PCR NOT DETECTED; CORONAVIRUS HKU1-RESP PCR NOT DETECTED; CORONAVIRUS NL63-RESP PCR NOT DETECTED; CORONAVIRUS OC43-RESP PCR NOT DETECTED; HUMAN METAPNEUMOVIRUS NOT DETECTED; INFLUENZA A- RESP PCR PANEL NOT DETECTED; INFLUENZA B - RESP PCR PANEL NOT DETECTED; M. PNEUMONIAE- RESP PCR PANEL NOT DETECTED; PARAINFLUENZA VIRUS 1 NOT DETECTED; PARAINFLUENZA VIRUS 2 NOT DETECTED; PARAINFLUENZA VIRUS 3 NOT DETECTED; PARAINFLUENZA VIRUS 4 NOT DETECTED; RHINOVIRUS/ENTEROVIRUS NOT DETECTED; RSV- RESP PCR PANEL NOT DETECTED; SARS-CoV-2 -RESP PCR PANEL NOT DETECTED
--- NOTE | 2022-02-09 23:37 | HISTORY & PHYSICAL EXAMINATION ---
Chief Complaint - Chief Complaint Chief Complaint: pain in hip after fall, can't walk History of Present Illness - Admitted From Admitted From:: Home - History Obtained From Records Reviewed: [facility] History obtained from: patient and Dr Patino Exam Limitations: mild memory loss - History of Present Illness HPI Comment/Other: This is an 86-year-old white female who is presenting with agonizing hip pain to the point that she cannot stand and weight-bear. She developed pain in her left hip with pain radiating down the leg on February 04. No history of trauma. She does have a history of degenerative disc disease of the lumbar spine. She was seen in the walk-in clinic that day and given some pain medicine and sent home. She then returned to the emergency room 02/05/22 stating the pain was not relieved. She was seen by Dr. Mosquera and given Mobic for pain and x-ray was performed. She did not have any fracture. She then returned to the emergency room February 07 because she fell in the bathroom, due to mechanical fall. She did not have loss of consciousness to cause the fall but she did have loss of consciousness after the fall when she hit her head. She is on Plavix. With the ER evaluation on that day her blood pressure was 231/87. CT of the head was negative as was C-spine. She was given gabapentin and Percocet and sent home. She returns tonight stating that the left hip pain has been unresponsive to the Percocet and the gabapentin. It is gotten to the point where she cannot move, she cannot stand. She is not eating or drinking because the pain in her left hip has left her unable to get out of bed. Even though she was given Percocet and Dilaudid from her ER visits, it was not helping the pain. There is no numbness or dysfunction of the leg other than pain at the hip. With today's intervention she was given IV Dilaudid and Valium and felt better. She continued not to be able to move the left hip very well. Hip CT did not show any acute fracture but showed severe arthritis. The case was presented to orthopedics on-call, Dr. Gonsalves, and he recommended the patient be injected tomorrow. Lab evaluation was then done and the patient is found to have a rise in her creatinine from a baseline of 0.8-2.0. Her usual normal sodium of 137 and is now 127. She is felt to be dehydrated from the lack of oral intake which is due to the pain.As such, Dr. Cee is asking that we place the patient under observation status for control of pain that has failed outpatient management, and treatment of dehydration that is occurred due to the pain. History - Past Medical History Cardiovascular: reports: Hypertension, High cholesterol, PA (NSTEMI 11/2021), Valve disorder (aortic stenosis w TAVR 2020) Neuro: reports: Alzhiemer's, Dementia Endocrine/Autoimmune: reports: None GI: reports: GERD, Other () PRODUCT MANAGEMENT MANAGER: reports: Breast cancer : reports: None HEENT: reports: Chronic vision loss, Chronic hearing loss Psych: reports: None Musculoskeletal: reports: Osteoarthritis, Chronic back pain MRSA Hx?: No - Past Surgical History /PRODUCT MANAGEMENT MANAGER: reports: Mastectomy - Family & Social History Family History Comment/Other: Parents of old age. She does not recall any major medical illnesses. 2 brothers and 1 sister. 1 brother is of old age. 1 brother is older than her and healthy and 1 sister is younger than her a nd healthy. 5 children. 2 are due to murder. It was separate events over separate years and she states that she cannot believe it happened twice. She feels that her other children are healthy with no major medical illnesses Living arrangement: At home Living Situation: With family Social History Notes: She was born and raised in the [place] [facility]. She her first and they had 5 children together. He has been gone for quite some time. 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 She moved to the [place] a while back, cannot remember when. She loves living here. She smoked for a few months when she was dating someone during her 20s. Has not smoked since. She has no history of alcohol abuse or any recreational substance abuse. She lives with her daughter. - Substance History Use: Uses substance without health or social issues: NONE Abuse: Recurrent use of substance despite neg consequences: NONE Dependence: Experiences withdrawal or developed tolerances: NONE - POLST Patient has POLST: No POLST Status: DNR Meds/Allgy - Home Medications Home Medications: Ambulatory Orders Medication Instructions Recorded Confirmed Meloxicam [Mobic] 7.5 mg PO BID PRN #20 tablet 02/05/22 02/09/22 Acetaminophen [Tylenol] 325 mg NV ONCE 02/07/22 02/07/22 Aspirin Chewable [St Sukhdev 81 mg PO DAILY 02/07/22 02/09/22 Aspirin] Clopidogrel [Plavix] 75 mg PO DAILY 02/07/22 Famotidine [Pepcid] 20 mg PO DAILY 02/07/22 02/09/22 Gabapentin [Neurontin] 100 mg PO TID PRN #30 cap 02/07/22 02/09/22 Lisinopril [Zestril] 40 mg PO DAILY 02/07/22 02/09/22 Multivitamin W/Minerals [Theragran 1 tab PO DAILY 02/07/22 02/09/22 M] Nitroglycerin [Nitrostat] 02/07/22 Oxycodone HCl/Acetaminophen 1 - 2 each PO Q6H PRN #20 tablet 02/07/22 02/09/22 [Percocet 5-325 mg Tablet] Pantoprazole Sodium [Protonix] 1 tab PO DAILY 02/07/22 02/09/22 carvediloL [Coreg] 12.5 mg PO DAILY 02/07/22 02/09/22 - Allergies Allergies/Adverse Reactions: Allergies Allergy/AdvReac Type Severity Reaction Status Date / Time soy Allergy Unknown Verified 02/09/22 19:53 Review of Systems - Constitutional Constitutional: reports: Weakness, Poor appetite. denies: Fatigue, Fever, Chills, Malaise, Diaphoresis, Night sweats - Eyes Eyes: reports: Blurred vision, Vision loss. denies: Pain, Irritation, Amaurosis - Ears, Nose & Throat Ears, Nose & Throat: reports: Hearing loss. denies: Hearing aids, Tinnitus, Vertigo - Cardiovascular Cariovascular: reports: Chest pain (stress test w poor endurance and cp 06/2021), Lightheadedness, Syncope, Exertional dyspnea, Decr. exercise tolerance (she can't say if it's her heart, lungs or joints that slow her down and maybe all do). denies: Irregular heart rate, Palpitations - Respiratory Respiratory: reports: Cough (daily for >1 yr), Sputum production (rarely, no hemoptysis), SOB with exertion. denies: Wheezing, Snoring, SOB at rest, Apnea, Stridor - Gastrointestinal Gastrointestinal: denies: Abdominal pain, Abdominal distention, Constipation, Diarrhea, Change in bowel habits, Rectal bleeding - Genitourinary Genitourinary: denies: Dysuria, Frequency, Urgency, Hematuria - Musculoskeletal Musculoskeletal: reports: Back pain, Muscle aches, Stiffness, Joint pain - Integumentary Integumentary: denies: Rash, Pruritis, Lesions, Dryness - Neurological Neurological: reports: General weakness, Memory problems, Abnormal gait (uses a cane/walker due to joints and overall aging). denies: Headache, Dizziness - Psychiatric Psychiatric: denies: Depression, Anxiety, Suicidal, Delusions, Hallucinations, Homicidal - Endocrine Endocrine: denies: Polyuria, Polydypsia, Polyphagia, Intolerance to cold - Hematologic/Lymphatic Hematologic/Lymphatic: denies: Anemia, Bruising, Petechiae, Blood clots Prior Level of Functionality: Lives with her daughter. Uses a cane and a walker. Describes being able to w alk the length of her room slowly but able to do it on her own. She says that she feeds her self. Daughter does help her with dressing and bathing and takes care of all the other chores in the house. Exam - Vital Signs Reviewed Vital Signs: Yes Vital Signs: Vital Signs x48h Temp Pulse Pulse Resp BP BP Pulse Ox 02/09/22 23:22 36.5 C 72 15 127/108 H 99 02/09/22 22:50 36.2 C L 67 18 164/92 H 97 02/09/22 22:11 88 16 164/92 H 96 02/09/22 21:44 36.2 C L 64 16 135/47 H 95 02/09/22 21:17 63 16 149/43 H 96 02/09/22 20:35 18 L 16 178/75 H 95 02/09/22 19:48 36.8 C 63 14 136/79 H 98 - Physical Exam General Appearance: positive: Alert, Moderate distress Eyes Bilateral: positive: PERRL, EOMI ENT: positive: Pharynx nml Neck: positive: No JVD. negative: Lymphadenopathy (R), Lymphadenopathy (L), Stiff neck Respiratory: positive: Chest non-tender, No respiratory distress. negative: Wheezes, Rales, Rhonchi Cardiovascular: positive: Regular rate & rhythm, Systolic murmur. negative: Gallop/S4, Friction rub Peripheral Pulses: positive: 1+ Abdomen: positive: Non-tender, No organomegaly, Nml bowel sounds, No distention Skin: positive: Color nml, No rash, Warm Extremities: positive: Nml appearance, No pedal edema. negative: Full ROM (left hip, left leg not moving) Conclusion/Plan - Problem List (1) Left hip pain Conclusion/Plan: This pain is been intractable. Unresponsive to outpatient management after 4 visits. To to the walk-in clinic and to to the emergency room. The pain is resulted in lack of p.o. intake, increased confusion from her baseline status, and has responded to Valium and IV opiates in the ER. Plan: Observation status A fixed schedule dose of Dilaudid to assess how much she is going to need in the outpatient setting For scheduled dose of Tylenol Orthopedic consult Order arthrocentesis/injection left hip with radiology for tomorrow. No aspirin, Mobic, or Plavix until after the injection (3) Dehydration Conclusion/Plan: Due to lack of p.o. intake which is in turn due to pain. Baseline creatinine is 0.9 in this lady. She is 2.0 with dry oral mucosa. Plan: Complete 1 L started in the emergency room Give a second liter Check BMP in the morning (4) MICHELLE (acute kidney injury) Conclusion/Plan: Due to dehydration. Once she is received 2 L, recheck BMP in the morning. Avoid nephrotoxic agents. (5) Dementia Conclusion/Plan: For dementia, she does give a history of lack of syncope. It was a mechanical fall. Plan: No intervention at this time We will try to avoid any other sedating drugs such as gabapentin. The opiates and of themselves may cause increasing confusion Qualifiers: Dementia type: Alzheimer's Alzheimer's disease onset: late-onset Dementia behavioral disturbance: without behavioral disturbance Qualified Code(s): G30.1 - Alzheimer's disease with late onset; F02.80 - Dementia in other diseases classified elsewhere without behavioral disturbance (6) Hypertension Conclusion/Plan: Resume her 40 mg of Zestril Qualifiers: Hypertension type: primary hypertension Qualified Code(s): I10 - Essential (primary) hypertension - Lab Results Lab results reviewed: Yes Fish Bones: 02/09/22 20:10 02/09/22 20:10 - Diagnostic Imaging Results Diagnostic Imaging Results: positive: Final report reviewed Core Measures - Anticipated LOS I expect patient to be DC'd or transferred within 96 hours.: Yes - DVT/VTE - Prophylaxis VTE/DVT Device ordered at admit?: No VTE/DVT Prophylaxis med ordered at admit?: Yes
[2022-02-09] MEDS: HYDROmorphone 0.5 MG/0.5 ML SYRINGE IVP SCH (23:40)
[2022-02-09] MEDS: ACETAMINOPHEN 325 MG TABLET PO PRN (23:40)
[2022-02-10] MEDS: SODIUM CHLORIDE FLUSH 0.9% 10 ML SYRINGE IVP SCH ×3 (00:47→16:38)
[2022-02-10] MEDS: HYDROmorphone 0.5 MG/0.5 ML SYRINGE IVP SCH ×2 (03:21→06:29)
[2022-02-10] MEDS: ACETAMINOPHEN 325 MG TABLET PO PRN ×2 (03:21→09:35)
[2022-02-10 05:52] LABS: BASOPHILS % (AUTO) 0.3 %; EOSINOPHILS # (AUTO) 0.3 10^3/uL (0.0-0.7); EOSINOPHILS % (AUTO) 2.5 %; HCT - HEMATOCRIT 34.1 % (37.0-47.0); HGB - HEMOGLOBIN 11.5 g/dL (12.0-16.0); LYMPHOCYTES # (AUTO) 2.3 10^3/uL (1.5-3.5); LYMPHOCYTES % (AUTO) 21.4 %; MEAN CORPUSCULAR HEMOGLOBIN 31.4 pg (27.0-31.0); MEAN CORPUSCULAR HGB CONC 33.7 g/dL (32.0-36.0); MEAN CORPUSCULAR VOLUME 93.2 fL (81.0-99.0); MEAN PLATELET VOLUME 10.5 fL (7.9-10.8); MONOCYTES # (AUTO) 0.9 10^3/uL (0.0-1.0); MONOCYTES % (AUTO) 8.6 %; NEUTROPHILS # (AUTO) 7.2 10^3/uL (1.5-6.6); PLT - PLATELET COUNT 215 10^3/uL (130-450); RED BLOOD COUNT 3.66 10^6/uL (4.20-5.40); RED CELL DISTRIBUTION WIDTH 12.4 % (12.0-15.0); WHITE BLOOD COUNT 10.7 x10^3/uL (4.8-10.8)
[2022-02-10 05:58] LABS: CALCIUM 8.6 mg/dL (8.5-10.3); CREATININE 1.2 mg/dL (0.4-1.0)
[2022-02-10] MEDS ORDERED: PANTOPRAZOLE 40 MG TABLET PO SCH (07:00)
[2022-02-10] MEDS ORDERED: GABAPENTIN 100 MG CAPSULE PO PRN (07:31)
[2022-02-10] MEDS ORDERED: oxyCODONE 5 MG TABLET PO PRN (07:57)
[2022-02-10] MEDS ORDERED: carvediloL 12.5 MG TABLET PO SCH (09:00)
[2022-02-10] MEDS ORDERED: ENOXAPARIN 40 MG/0.4 ML SYRINGE SUBQ SCH (09:00)
[2022-02-10] MEDS ORDERED: lisinopriL 20 MG TABLET PO SCH (09:00)
[2022-02-10] MEDS ORDERED: ASPIRIN CHEW 81 MG TABLET PO SCH (09:00)
[2022-02-10] MEDS ORDERED: MULTIVITAMIN W/MINERALS TABLET PO SCH (09:00)
[2022-02-10] MEDS: SODIUM CHLORIDE 0.9% 1,000 ML IV SCH (09:34)
[2022-02-10] MEDS ORDERED: HYDROmorphone 0.5 MG/0.5 ML SYRINGE IVP PRN (09:58)
--- NOTE | 2022-02-10 11:29 | PHARMACY PROGRESS NOTE ---
- Best Possible Medication History Admit Date and Time: 02/09/223 Processed by: Nursing Medication History completed: Yes Patient Interview: Completed Secondary Source(s): Pharmacy records, Insurance records As the person ultimately responsible for medication therapy, providers are able to order a medication from an existing home medication list in [facility] via the "Reconcile Routine" prior to Confirmation of that medication by production support manager. Such practice is discouraged except when the physician, in their clinical judgment, deems that a medical need exists for a medication without regard to previous use.
[2022-02-10] MEDS ORDERED: IOTHALAMATE MEGLUMINE 50 ML VIAL ONE (11:37)
[2022-02-10] MEDS ORDERED: TRIAMCINOLONE 40 MG/ML VIAL ONE (11:37)
[2022-02-10] MEDS ORDERED: ROPIVACAINE 0.5% PF 20 ML AMPULE ONE (11:37)
[2022-02-10] MEDS ORDERED: LIDOCAINE-MPF 1% 10 ML AMP ONE (11:38)
[2022-02-10] MEDS ORDERED: IOTHALAMATE MEGLUMINE 50 ML VIAL IVP ONE (12:35)
[2022-02-10] MEDS ORDERED: ROPIVACAINE 0.5% PF 20 ML AMPULE EP ONE (12:36)
[2022-02-10] MEDS ORDERED: LIDOCAINE-MPF 1% 10 ML AMP IM ONE (12:39)
[2022-02-10] MEDS ORDERED: TRIAMCINOLONE 40 MG/ML VIAL IM ONE (12:40)
--- NOTE | 2022-02-10 14:01 | XRAY Report ---
PROCEDURE: Inj/Aspiration Major Joint INDICATIONS: left hip pain CONTRAST: CONTRAST: CONRAY FLUORO DOSAGE: Less than 1 minute FLUORO TIME: FLUORO TIME: 0.2 min and NUMBER IMAGES: 2 TECHNIQUE: The indications, alternatives, benefits, risks, and complications of the procedure were explained to the patient. Written informed consent was obtained and placed in the chart. The patient was placed in an appropriate position on the fluoroscopy table, and a site was chosen for percutaneous access un julius fluoroscopic guidance. Local anesthetic was administered using a 1% lidocaine solution. A hypod ermic or spinal needle was then used to access the symptomatic joint. Intra-articular location of th e needle tip was confirmed by injecting a small amount of contrast, followed by steroid administratio n. The needle was then withdrawn, and a bandage applied to the puncture site. FINDINGS: Joint injected: Left hip Medications injected: 1 mL of 40 mg/mL Kenalog and 0.5% Ropivacaine mixture. Complications: None. IMPRESSION: Successful fluoroscopically guided administration of steroid and anaesthetic solution into the left h ip joint. Reviewed by: Stan Santizo MD on 02/10/2022 1:59 PM PDT Approved by: Stan Santizo MD on 02/10/2022 1:59 PM PDT Station ID: [id number]
--- NOTE | 2022-02-10 14:51 | Discharge Plan ---
Discharge Plan Problem Reviewed?: Yes Disposition: 06 Home Health Service Condition: Stable Diet: Regular Activity Restrictions: Activity as Tolerated Shower Restrictions: No (fall precaution) Instruction Topics: Osteoarthritis, Falls Prevent Home, Dehydration, Injection Facet Joint Having Health Concerns: dehydration, osteoarthritis Plan of Treatment: You may keep hydration at home and follow up with your PCP in one week to have BMP blood work to monitor your kidney function. You had a successful left hip joint steroid with ropivacaine injection. PT/OT had evaluation and treatment for you, and recommended home health PT/OT for you. Home health PT/OT is arranged for you. You may continue pain control and followup with your PCP and orthopedics as out-pt. Care Goals: Stabilization and improvement of your medical conditions Assessment: Discussed the care plan with you and your daughter at the bedside, answered your and your daughter's questions, you understood Additional Instructions or Follow Up instructions: You may follow-up with your PCP in 1 week, follow-up with orthopedic surgeon as outpatient. Should your symptoms return or worsen, you may present to the ER or call 911 for help No Smoking: If you smoke, Please STOP! Call for help. Follow-up with: Matt Jane DO [Primary Care Provider] -
--- NOTE | 2022-02-10 15:09 | DISCHARGE SUMMARY ---
Discharge Summary Admit Date: 02/09/22 Discharge Date: 02/10/22 Discharging Provider: Adin Kraft Primary Care Provider: Matt Zhang Condition at Discharge: Stable Discharge Disposition: Home Health Service Discharge Facility Name: home - DIAGNOSES Discharge Diagnoses with Status of Each Condition: (1) Left hip pain left hip pain is controlled. pt had PT/OT evaluation and treatment, recommended home PT/OT. Pt present nearly at her funcitonal baseline for ADL and functional mobility today per OT/PT evaluation. home health PT/OT is arranged for pt. CT of left hip reveal no acute fracture but severe osteoarthritic change. pt had a successful left hip joint steroid and ropivacaine injection. pt may continue pain control, and followup with her PCP and orthopedics as out-pt. Pt may resume her home meds (3) Dehydration creatinine is 1.2 now from admission 2.0. strongly advise pt and her daughter who is at the bedside for keeping pt on hydration at home. pt may followup with her PCP in one week and have blood work to monitor her kidney function as well. (4) MICHELLE (acute kidney injury) significant improved as the above. (5) Dementia stable. (6) Hypertension stable, resume her home meds - HPI History of Present Illness: refer from Dr. De La Fuente's HPI for pt on 02/09/22 This is an 86-year-old white female who is presenting with agonizing hip pain to the point that she cannot stand and weight-bear. She developed pain in her left hip with pain radiating down the leg on February 04. No history of trauma. She does have a history of degenerative disc disease of the lumbar spine. She was seen in the walk-in clinic that day and given some pain medicine and sent home. She then returned to the emergency room 02/05/22 stating the pain was not relieved. She was seen by Dr. Mosquera and given Mobic for pain and x-ray was performed. She did not have any fracture. She then returned to the emergency room February 07 because she fell in the bathroom, due to mechanical fall. She did not have loss of consciousness to cause the fall but she did have loss of consciousness after the fall when she hit her head. She is on Plavix. With the ER evaluation on that day her blood pressure was 231/87. CT of the head was negative as was C-spine. She was given gabapentin and Percocet and sent home. She returns tonight stating that the left hip pain has been unresponsive to the Percocet and the gabapentin. It is gotten to the point where she cannot move, she cannot stand. She is not eating or drinking because the pain in her left hip has left her unable to get out of bed. Even though she was given Percocet and Dilaudid from her ER visits, it was not helping the pain. There is no numbness or dysfunction of the leg other than pain at the hip. With today's intervention she was given IV Dilaudid and Valium and felt better. She continued not to be able to move the left hip very well. Hip CT did not show any acute fracture but showed severe arthritis. The case was presented to orthopedics on-call, Dr. Gonsalves, and he recommended the patient be injected tomorrow. Lab evaluation was then done and the patient is found to have a rise in her creatinine from a baseline of 0.8-2.0. Her usual normal sodium of 137 and is now 127. She is felt to be dehydrated from the lack of oral intake which is due to the pain.As such, Dr. Cee is asking that we place the patient under observation status for control of pain that has failed outpatient management, and treatment of dehydration that is occurred due to the pain. - HOSPITAL COURSE Hospital Course: pt was admitted for uncontrolled left hip pain, fall. Initially in the morning, pt refused to have left hip joint injection of steroid and ropivacaine. I called pt's daughter. After pt's daughter come to hospital, and talked with pt, Pt changed her mind and agreed to have left hip joint injection of steroid and ropivacaine. pt had a successful left hip joint injection of steroid and ropivacaine by radiologist. pt had PT/OT evaluation and treatment. Pt's left hip pain is controlled now. Pt present nearly at her funcitonal baseline for ADL and functional mobility today per OT/PT evaluation. pt also presented dehydration. After hydration at hospital, her dehydration is nearly resolved. Advised pt and her daughter to keep pt hydration at her home and followup with her PCP to monitor her kidney function. I answered and explained pt's daughter's all questions. pt may keep her pain control with her home pain meds, followup with her PCP and orthopedics as out-pt and home health PT/OT as well. - ALLERGIES Allergies/Adverse Reactions: Allergies Allergy/AdvReac Type Severity Reaction Status Date / Time soy Allergy Unknown Verified 02/09/22 19:53 - MEDICATIONS Home Medications: Ambulatory Orders Medication Instructions Recorded Confirmed Meloxicam [Mobic] 7.5 mg PO BID PRN #20 tablet 02/05/22 02/09/22 Aspirin Chewable [St Sukhdev 81 mg PO DAILY 02/07/22 02/09/22 Aspirin] Clopidogrel [Plavix] 75 mg PO DAILY 02/07/22 02/10/22 Famotidine [Pepcid] 20 mg PO DAILY PRN 02/07/22 02/09/22 Gabapentin [Neurontin] 100 mg PO TID PRN #30 cap 02/07/22 02/09/22 Lisinopril [Zestril] 40 mg PO DAILY 02/07/22 02/09/22 Multivitamin W/Minerals [Theragran 1 tab PO DAILY 02/07/22 02/09/22 M] Oxycodone HCl/Acetaminophen 1 - 2 each PO Q6H PRN #20 tablet 02/07/22 02/09/22 [Percocet 5-325 mg Tablet] Pantoprazole Sodium [Protonix] 1 tab PO DAILY 02/07/22 02/09/22 carvediloL [Coreg] 12.5 mg PO BID 02/07/22 02/10/22 methocarbamoL [Methocarbamol] 500 mg PO TID PRN 02/10/22 02/10/22 - PHYSICAL EXAM AT DISCHARGE General Appearance: positive: No acute distress, Alert. negative: Lethargic Eyes Bilateral: positive: Normal inspection, No lid inflammation ENT: positive: ENT inspection nml, No signs of dehydration. negative: Purulent nasal drainage Neck: positive: Nml inspection, Trachea midline. negative: Tracheal deviation Respiratory: positive: Chest non-tender, No respiratory distress, Breath sounds nml. negative: Wheezes Cardiovascular: positive: Regular rate & rhythm. negative: Tachycardia, Bradycardia, Systolic murmur Peripheral Pulses: positive: 2+ Abdomen: positive: Non-tender, Nml bowel sounds, No distention. negative: Tenderness Back: positive: Nml inspection Skin: positive: Color nml, Warm, Dry. negative: Cyanosis Extremities: positive: Non-tender, Full ROM, Nml appearance Neurologic/Psychiatric: positive: Motor nml, Sensation nml. negative: Weakness, Sensory loss, Facial droop, Slurred/abnml speech, Depressed mood/affect - LABS Result Diagrams: 02/10/22 04:32 02/10/22 04:32 - FOLLOW UP Follow Up: You may keep hydration at home and follow up with your PCP in one week to have BMP blood work to monitor your kidney function. You had a successful left hip joint steroid with ropivacaine injection. PT/OT had evaluation and treatment for you, and recommended home health PT/OT for you. Home health PT/OT is arranged for you. You may continue pain control and followup with your PCP and orthopedics as out-pt. You may follow-up with your PCP in 1 week, follow-up with orthopedic surgeon as outpatient. Should your symptoms return or worsen, you may present to the ER or call 911 for help - TIME SPENT Time Spent in Discharge (Minutes): 30
[2022-02-10 18:55] VITALS: BP 164/70
[2022-02-11] MEDS ORDERED: ENOXAPARIN 30 MG/0.3 ML SYRINGE SUBQ SCH (09:00)
== END 2022-02-10 18:55 | disposition home health service (06) ==
LOC: ED 19:43 → MS2 22:32
PROVIDERS: ADMIT Specialist; ATTEND Nurse Practitioner Gerontology
DX: M25.552 Pain in left hip (principal); M16.12 Unilateral primary osteoarthritis, left hip; E86.0 Dehydration; N17.9 Acute kidney failure, unspecified; G30.1 Alzheimer's disease with late onset; F02.80 Dementia in other diseases classified elsewhere, unspecified severity, without behavioral disturbance, psychotic disturbance, mood disturbance, and anxiety; I10 Essential (primary) hypertension; Z20.822 Contact with and (suspected) exposure to COVID-19; M51.36 Other intervertebral disc degeneration, lumbar region; I25.2 Old myocardial infarction; Z95.2 Presence of prosthetic heart valve; Z87.891 Personal history of nicotine dependence; Z66 Do not resuscitate
CPT/HCPCS: 20610; 36415; 80048; 80053; 85025; 87633; 96374; 96375; 96376; 99284

== ENCOUNTER 2022-08-11 08:00 | Outpatient (CLI) | payer MEDICARE, OTHER ==
[2022-08-11 21:04] LABS: BASOPHILS # (AUTO) 0.1 10^3/uL (0.0-0.1); BASOPHILS % (AUTO) 0.6 %; EOSINOPHILS # (AUTO) 0.1 10^3/uL (0.0-0.7); EOSINOPHILS % (AUTO) 1.8 %; HCT - HEMATOCRIT 38.1 % (37.0-47.0); HGB - HEMOGLOBIN 12.4 g/dL (12.0-16.0); LYMPHOCYTES # (AUTO) 2.7 10^3/uL (1.5-3.5); LYMPHOCYTES % (AUTO) 34.4 %; MEAN CORPUSCULAR HEMOGLOBIN 30.7 pg (27.0-31.0); MEAN CORPUSCULAR HGB CONC 32.5 g/dL (32.0-36.0); MEAN CORPUSCULAR VOLUME 94.3 fL (81.0-99.0); MEAN PLATELET VOLUME 10.8 fL (7.9-10.8); MONOCYTES # (AUTO) 0.7 10^3/uL (0.0-1.0); MONOCYTES % (AUTO) 8.6 %; NEUTROPHILS # (AUTO) 4.2 10^3/uL (1.5-6.6); NEUTROPHILS % (AUTO) 54.5 %; PLT - PLATELET COUNT 209 10^3/uL (130-450); RED BLOOD COUNT 4.04 10^6/uL (4.20-5.40); RED CELL DISTRIBUTION WIDTH 12.6 % (12.0-15.0); WHITE BLOOD COUNT 7.8 x10^3/uL (4.8-10.8)
[2022-08-11 21:21] LABS: ALBUMIN 3.8 g/dL (3.2-5.5); ALBUMIN/GLOBULIN RATIO 0.9 (1.0-2.2); BILIRUBIN,TOTAL 0.3 mg/dL (0.2-1.0); POTASSIUM 4.2 mmol/L (3.5-5.0); TOTAL PROTEIN 7.9 g/dL (6.7-8.2)
[2022-08-11 22:43] LABS: THYROID STIMULATING HORMONE 3.04 uIU/mL (0.34-5.60)
== END 2022-08-11 23:59 | disposition home or self-care (01) ==
LOC: LAB.N 08:00
PROVIDERS: ATTEND Family Medicine
DX: R06.09 Other forms of dyspnea (principal)
CPT/HCPCS: 36415; 80053; 83880; 84443; 85025

== ENCOUNTER 2025-02-04 15:17 | Inpatient (IN) ==
--- NOTE | 2025-02-04 16:52 | CT Report ---
PROCEDURE: CT Head WO INDICATIONS: fall, head injury TECHNIQUE: Noncontrast 4.5 mm thick angled axial sections acquired from the foramen magnum to the vertex. For r adiation dose reduction, the following was used: automated exposure control, adjustment of mA and/or kV according to patient size. COMPARISON: 02/07/2022 FINDINGS: Image quality: Excellent. CSF spaces: Basal cisterns are patent. No extra-axial fluid collections. The ventricles are symmet renay in size and shape. Brain: No intracranial bleeds or masses. There is cerebral volume loss for age, with resultant vent ricular and sulcal prominence. There are periventricular and deep white matter chronic small vessel ischemic changes. There is intracranial internal carotid artery atherosclerosis. Skull and face: Calvarium and visualized facial bones appear intact, without suspicious lesions. Sinuses: Visualized sinuses and mastoids are clear. IMPRESSION: No acute intracranial pathology. Reviewed by: Jez Mays MD on 02/04/2025 4:50 PM PDT Approved by: Jez Mays MD on 02/04/2025 4:50 PM PDT Station ID: [id number]
--- NOTE | 2025-02-04 17:42 | XRAY Report ---
PROCEDURE: XR Shoulder 2+V RT INDICATIONS: fall, pain TECHNIQUE: 3 views of the shoulder were acquired. COMPARISON: None. FINDINGS: Bones: No acute fractures or dislocations. Severe acromioclavicular and mild glenohumeral joint dege neration. No suspicious bony lesions. No significant effusion. The glenohumeral and acromioclavicular joints are preserved. Soft tissues: No suspicious soft tissue calcifications. The visualized lungs are within normal limi ts. Aortic valvuloplasty. Right chest wall surgical clips. IMPRESSION: No acute bony abnormality. If pain persists with conservative management, consider repeat x-ray in 10 -14 days or cross-sectional imaging. Reviewed by: Jack Garcia MD on 02/04/2025 5:41 PM PDT Approved by: Jack Garcia MD on 02/04/2025 5:41 PM PDT Station ID: [id number]
--- NOTE | 2025-02-04 18:49 | ED Physician Documentation ---
History of Present Illness Stated complaint Stated Complaint: GLF Chief complaint Chief Complaint: Trauma Ch/Bk History obtained from History obtained from: Patient and Family History of Present Illness Pain level max: 0 Pain level now: 0 Additonal information Additional information: 89-year-old female lives at home with her daughter. Has dementia. Daughter came down the stairs and found her on the floor today. States that she did vomit x 1 this morning. History of dementia. Patient unable to give any history. Daughter states that she has not been able to walk since this morning usually is very ambulatory. Patient is on Plavix. Unknown if she struck her head or not as this was unwitnessed Review of Systems Status of ROS: unobtainable due to mental status Meds/Allgy Home Medications Ambulatory Orders Medication Instructions Recorded Confirmed meloxicam 7.5 mg tablet 7.5 mg PO BID PRN Pain #20 tabs 02/05/22 02/09/22 aspirin 81 mg chewable tablet 81 mg PO DAILY 02/07/22 02/09/22 carvedilol 12.5 mg tablet 12.5 mg PO BID 02/07/22 02/10/22 clopidogrel 75 mg tablet 75 mg PO DAILY 02/07/22 02/10/22 famotidine 20 mg tablet 20 mg PO DAILY PRN Heartburn 02/07/22 02/09/22 gabapentin 100 mg capsule 100 mg PO TID PRN hip pain #30 caps 02/07/22 02/09/22 lisinopril 40 mg tablet (Zestril) 40 mg PO DAILY 02/07/22 02/09/22 idanrbqupzaz-tplgjyzj-lqep 1 tab PO DAILY 02/07/22 02/09/22 fumarate 19 mg-folic acid 400 mcg tablet (Therapeutic-M) oxycodone-acetaminophen 5 mg-325 1 - 2 ea PO Q6H PRN pain #20 tabs 02/07/22 02/09/22 mg tablet (Percocet) pantoprazole 40 mg granules 1 tab PO DAILY 02/07/22 02/09/22 delayed-release for susp in packet (Protonix) methocarbamol 500 mg tablet 500 mg PO TID PRN Pain 02/10/22 02/10/22 Allergies Allergies Allergy/AdvReac Type Severity Reaction Status Date / Time soy Allergy Unknown Verified 02/04/25 15:48 PFSH Active Problems All Active Problems (Updated 02/04/25 @ 21:41 by Farshad Patino MD) Diverticulitis (Acute) Leukocytosis (Acute) Weakness (Acute) Acute alteration in mental status (Acute) MICHELLE (acute kidney injury) (Acute) Fall at home (Acute) Dementia (Acute) Dehydration (Acute) Left hip pain (Acute) Acute renal insufficiency (Acute) Hyponatremia (Acute) Acute pain (Acute) Hip osteoarthritis (Chronic) Back pain (Chronic) Hypertension (Chronic) Medical History Medical History (Updated 02/04/25 @ 21:41 by Farshad Patino MD) On anticoagulant therapy Social History Social History Smoking Status: Never smoker Do you vape?: No Living arrangement: At home Living Condition: With family Relationship: Child Do you feel safe in your home environment?: Yes Suffered physical, verbal, emotional, or financial abuse?: No History of Abuse: No POLST Patient has POLST: No POLST Status: DNR Exam Exam Vital Signs: Vital Signs x48h Temp Pulse Resp BP Pulse Ox 02/04/25 22:14 76 16 182/87 H 97 02/04/25 22:12 96 18 207/94 H 96 02/04/25 21:57 93 16 192/125 H 97 02/04/25 21:52 91 18 196/108 H 98 02/04/25 21:42 121 H 18 211/117 H 98 02/04/25 21:35 108 H 18 156/90 H 97 02/04/25 20:54 110 H 18 247/108 H 98 02/04/25 19:00 109 H 18 97 02/04/25 17:44 110 H 18 168/106 H 98 02/04/25 15:37 36.9 C 124 H 18 163/80 H 98 Constitutional normal general appearance and no apparent distress HENMT normocephalic, head/scalp atraumatic and oral mucous membranes normal Eyes PERRL and EOMs intact bilaterally Neck/C-Spine visual inspection normal Chest palpation of chest normal Respiratory breath sounds equal bilaterally and normal respiratory effort Cardiovascular normal heart rate noted and regular rhythm noted Gastrointestinal abdomen soft to palpation, nontender to palpation and nondistended Genitourinary no CVA tenderness Extremities normal to inspection, normal to palpation, no tenderness and full ROM Psychiatry Patient is oriented to person only. this is off of her normal baseline per family. Skin skin color normal Results Vitals Vitals: Vital Signs - 24 hr 02/04/25 15:37 02/04/25 17:44 02/04/25 19:00 Temperature 36.9 C Temperature Source Skin Pulse Rate 124 H 110 H 109 H Respiratory Rate 18 18 18 Blood Pressure 163/80 H 168/106 H O2 Saturation 98 98 97 O2 Source Room air Room air Room air Pain Intensity 3 0 02/04/25 20:54 02/04/25 21:35 02/04/25 21:42 Temperature Temperature Source Pulse Rate 110 H 108 H 121 H Respiratory Rate 18 18 18 Blood Pressure 247/108 H 156/90 H 211/117 H O2 Saturation 98 97 98 O2 Source Room air Room air Room air Pain Intensity 02/04/25 21:52 02/04/25 21:57 02/04/25 22:12 Temperature Temperature Source Pulse Rate 91 93 96 Respiratory Rate 18 16 18 Blood Pressure 196/108 H 192/125 H 207/94 H O2 Saturation 98 97 96 O2 Source Room air Room air Pain Intensity 02/04/25 22:14 Temperature Temperature Source Pulse Rate 76 Respiratory Rate 16 Blood Pressure 182/87 H O2 Saturation 97 O2 Source Room air Pain Intensity Oxygen O2 Source Room air EKG (time done) 1917: EKG releavant findings:: EKG personally interpreted by author of this note. Relevant findings are: Rate: Other (105 bpm. Sinus tachycardia. Left anterior fascicular block. Normal QRS. Normal TN interval. Normal ST segments.) Labs Labs: Laboratory Tests 02/04/25 02/04/25 18:40 19:09 WBC 11.6 H RBC 4.00 L Hgb 12.3 Hct 38.0 MCV 95.0 MCH 30.8 MCHC 32.4 RDW 13.8 Plt Count 270 MPV 10.1 Neut # (Auto) 8.2 H Lymph # (Auto) 2.4 [place]on # (Auto) 0.9 Eos # (Auto) 0.1 Baso # (Auto) 0.0 Absolute Nucleated RBC 0.00 Nucleated RBC % 0.0 Sodium 137 Potassium 3.7 Chloride 96 L Carbon Dioxide 31 Anion Gap 10.0 BUN 29 H Creatinine 0.9 Estimated GFR (MDRD) 59 L Glucose 160 H Calcium 9.8 Total Bilirubin 0.5 AST 24 ALT 15 Alkaline Phosphatase 57 Total Protein 8.1 Albumin 4.2 Globulin 3.9 Albumin/Globulin Ratio 1.1 Urine Color YELLOW Urine Clarity CLEAR Urine pH 5.5 Ur Specific Eden 1.025 Urine Protein 100 H Urine Glucose (UA) NEGATIVE Urine Ketones TRACE Urine Occult Blood TRACE-INTA Urine Nitrite NEGATIVE Urine Bilirubin NEGATIVE Urine Urobilinogen 0.2 (NORMAL) Ur Leukocyte Esterase NEGATIVE Urine RBC None Seen Urine WBC 0-3 Ur Squamous Epith Cells FEW Squamous Urine Crystals 26-50 Ca Oxalate Urine Bacteria Few Urine Mucus Few Strands Ur Microscopic Review INDICATED Urine Culture Comments NOT INDICATED Rads (name of study) head CT : Relevant Findings:: Final report received CT abd/pelvis: Relevant Findings:: Final report received R shoulder xray: Relevant Findings:: Final report received PD Medical Decision Making ED course Complexity details: reviewed results, re-evaluated patient, considered differential and d/w patient ED course: 89-year-old female found on the ground today, unclear if she fell, possibly had a syncopal event or other injury causing her weakness. 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 Does not have any lateralizing signs. Her face is symmetrical along with her smile. NIH stroke scale of 0. Head CT does not show any acute abnormalities. Also had complained of right shoulder pain, this is negative as well. She did vomit x 1 this morning. Difficult to tell if she has abdominal pain or not. Does have an elevated white blood cell count and given that the family states that she is usually mobile, occasionally uses a walker but ambulates without any difficulty and that this is an acute change especially with her altered mental status worse than baseline. A CT abdomen pelvis was undertaken which shows colonic diverticulitis. Started on Zosyn for this. Given IV fluids as well. Still unable to stand and walk, even with a walker. Given her acute weakness, altered mental status, elevated white blood cell count and diverticulitis on CT scan. Will admit for further care. Telehospitalist consult placed. Pending at time of sign out. Dr. Hartley to take over care. This document was made in part using voice recognition software. While efforts are made to proofread this document, sound alike and grammatical errors may occur. Patient did have significantly elevated blood pressures in the emergency department as well, at 1 point was over 240 systolic. Given 5 mg of metoprolol and this decreased to 156/90. Most of the history is obtained from the patient's daughter. Discharge Plan Discharge Patient Disposition: [facility] DC/Xfer Condition: Stable Clinical Impression: Acute alteration in mental status, Weakness, Diverticulitis Leukocytosis Qualifiers: Leukocytosis type: unspecified Qualified Code(s): D72.829 - Elevated white blood cell count, unspecified Prescriptions: No Action meloxicam 7.5 MG tablet 7.5 mg PO BID PRN (Reason: Pain) Qty: 20 0RF carvedilol 12.5 MG tablet 12.5 mg PO BID clopidogrel 75 MG tablet 75 mg PO DAILY famotidine 20 MG tablet 20 mg PO DAILY PRN (Reason: Heartburn) aspirin 81 MG tablet,chewable 81 mg PO DAILY lisinopril [Zestril] 40 MG tablet 40 mg PO DAILY pantoprazole [Protonix] [address] for susp in packet 1 tab PO DAILY moerqjhl-qha-hojn fum-folic ac [Therapeutic-M] 1 TAB tablet 1 tab PO DAILY gabapentin 100 MG capsule 100 mg PO TID PRN (Reason: hip pain) Qty: 30 0RF oxycodone-acetaminophen [Percocet] 1 EACH tablet 1 - 2 ea PO Q6H PRN (Reason: pain) Qty: 20 0RF methocarbamol 500 MG tablet 500 mg PO TID PRN (Reason: Pain) Patient Comments: 1 tablet by mouth three times a day Print Language: Hebrew
[2025-02-04 18:57] LABS: BILIRUBIN,URINE NEGATIVE (NEGATIVE); GLUCOSE, URINE (UA) NEGATIVE (NEGATIVE); KETONES,URINE (UA) TRACE mg/dL (NEGATIVE); LEUKOCYTE ESTERASE, URINE NEGATIVE (NEGATIVE); NITRITE,URINE NEGATIVE (NEGATIVE); OCCULT BLOOD,URINE TRACE-INTA (NEGATIVE); PH,URINE 5.5 PH (5.0-7.5); PROTEIN,URINE 100 mg/dL (NEGATIVE); UROBILINOGEN,URINE 0.2 (NORMAL) E.U./dL (NORMAL)
[2025-02-04 18:59] LABS: CLARITY,URINE CLEAR (CLEAR)
[2025-02-04] MEDS: SODIUM CHLORIDE 0.9% 1,000 ML IV STA (19:16)
[2025-02-04 19:26] LABS: BASOPHILS % (AUTO) 0.3 %; EOSINOPHILS # (AUTO) 0.1 10^3/uL (0.0-0.7); EOSINOPHILS % (AUTO) 0.4 %; HGB - HEMOGLOBIN 12.3 g/dL (12.0-16.0); LYMPHOCYTES # (AUTO) 2.4 10^3/uL (1.5-3.5); LYMPHOCYTES % (AUTO) 20.9 %; MEAN CORPUSCULAR HEMOGLOBIN 30.8 pg (27.0-31.0); MEAN CORPUSCULAR HGB CONC 32.4 g/dL (32.0-36.0); MEAN PLATELET VOLUME 10.1 fL (7.9-10.8); MONOCYTES # (AUTO) 0.9 10^3/uL (0.0-1.0); MONOCYTES % (AUTO) 7.6 %; NEUTROPHILS # (AUTO) 8.2 10^3/uL (1.5-6.6); NEUTROPHILS % (AUTO) 70.5 %; PLT - PLATELET COUNT 270 10^3/uL (130-450); RED CELL DISTRIBUTION WIDTH 13.8 % (12.0-15.0); WHITE BLOOD COUNT 11.6 x10^3/uL (4.8-10.8)
[2025-02-04 19:36] LABS: ALBUMIN 4.2 g/dL (3.2-5.5); ALBUMIN/GLOBULIN RATIO 1.1 (1.0-2.2); BILIRUBIN,TOTAL 0.5 mg/dL (0.2-1.0); CALCIUM 9.8 mg/dL (8.5-10.3); CREATININE 0.9 mg/dL (0.6-1.3); POTASSIUM 3.7 mmol/L (3.5-4.5); TOTAL PROTEIN 8.1 g/dL (6.4-8.9)
[2025-02-04 19:48] LABS: BACTERIA,URINE Few /HPF (None Seen); RBC,URINE None Seen /HPF (0-5); SQUAMOUS EPITHELIAL CELL,UR FEW Squamous (<= Few); WBC,URINE 0-3 /HPF (0-5)
[2025-02-04 19:49] LABS: CRYSTALS,URINE 26-50 Ca Oxalate /LPF; MUCUS,URINE Few Strands
[2025-02-04] MEDS ORDERED: iohexoL-300 100 ML VIAL ONE (20:07)
[2025-02-04] MEDS: iohexoL-300 100 ML VIAL IVP ONE (20:38)
--- NOTE | 2025-02-04 21:23 | CT Report ---
PROCEDURE: CT Abdomen/Pelvis W INDICATIONS: weakness, UTI CONTRAST: 100 mL Omnipaque 300 intravenous contrast TECHNIQUE: After the administration of intravenous contrast, a CT scan of the abdomen and pelvis was performed. Images were recorded and evaluated at appropriate window settings. Reformats: coronal and sagittal. F or radiation dose reduction, the following was used: automated exposure control, adjustment of mA and /or kV according to patient size. COMPARISON: None. FINDINGS: Image quality: Poor; motion artifact limits evaluation. Peritoneum: No pneumoperitoneum or ascites. Bones: Diffuse osseous demineralization. Multilevel lumbar osteoarthrosis, including grade 1 anteroli sthesis of L4 on L5. Multilevel severe facet arthropathy. Severe bilateral hip osteoarthritis. Mild b ilateral sacroiliac osteoarthritis. Lower Thorax: Cardiomegaly with left atrial enlargement. Aortic valve prosthesis. Coronary artery estrella nts. Small hiatal hernia. Liver: Normal in size and contour. A few hypodense lesions are present in the right hepatic lobe, too small to characterize, likely representing simple cysts. Gallbladder: No wall thickening, stones, or pericholecystic edema. Biliary tree: No intrahepatic or extrahepatic biliary duct dilatation. Pancreas: No acute abnormality. Spleen: Normal in size. Kidneys: Punctate nonobstructive calculus in the left renal pelvis (2/52). Right extrarenal pelvis. O therwise, no hydronephrosis or obstructive urolithiasis. Adrenals: No nodularity. Bladder: No abnormal wall thickening. : No acute abnormality. Stomach: No focal masses or abnormal distension. Bowel: Extensive sigmoid colonic diverticulosis with mural thickening (2/119). No bowel obstruction. Nonvisualization of the appendix without secondary signs of acute appendicitis. Moderate stool burden . Lymph Nodes: No retroperitoneal, mesenteric, or inguinal lymphadenopathy. Vascular: No abdominal aortic aneurysm. The visualized arterial vasculature is patent. Moderate aorto iliac atherosclerosis. Soft tissues: No acute abnormality. IMPRESSION: 1.Limited exam. 2.Punctate nonobstructive left nephrolithiasis. No hydronephrosis or obstructive urolithiasis. 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 Please correlate with prior colonoscopy records. 4.Other chronic findings noted above. Reviewed by: Danilo Cage MD on 02/04/2025 9:22 PM PDT Approved by: Danilo Cage MD on 02/04/2025 9:22 PM PDT Station ID: [id number]
[2025-02-04] MEDS: METOPROLOL 5 MG/5 ML VIAL IVP STA (21:37)
[2025-02-04] MEDS: PIPERACILLIN/TAZOBACTAM 3.375 GM in SODIUM CHLORIDE 0.9% MINIBAG 100 ML IV STA (22:42)
[2025-02-04] MEDS ORDERED: MELOXICAM 7.5 MG TABLET PO PRN (23:12)
[2025-02-04 23:43] LABS: CHOL/HDL RATIO 3.4 (<4.4); CHOLESTEROL 179 mg/dL; HDL CHOLESTEROL 53 mg/dL; LDL CHOLESTEROL,CALCULATED 106 mg/dL; TRIGLYCERIDES 100 mg/dL; VLDL CHOLESTEROL 20 mg/dL
[2025-02-04 23:58] LABS: THYROID STIMULATING HORMONE 1.56 uIU/mL (0.34-5.60)
[2025-02-05] MEDS: LACTATED RINGERS 1,000 ML IV SCH (00:37)
[2025-02-05] MEDS ORDERED: HALOPERIDOL 5 MG/ML VIAL ONE (04:01)
[2025-02-05] MEDS: HALOPERIDOL 5 MG/ML VIAL IM STA (04:30)
[2025-02-05 05:45] LABS: BASOPHILS % (AUTO) 0.3 %; EOSINOPHILS # (AUTO) 0.1 10^3/uL (0.0-0.7); EOSINOPHILS % (AUTO) 0.5 %; HGB - HEMOGLOBIN 10.9 g/dL (12.0-16.0); LYMPHOCYTES # (AUTO) 1.4 10^3/uL (1.5-3.5); LYMPHOCYTES % (AUTO) 12.9 %; MEAN CORPUSCULAR HEMOGLOBIN 31.1 pg (27.0-31.0); MEAN PLATELET VOLUME 10.1 fL (7.9-10.8); MONOCYTES # (AUTO) 0.9 10^3/uL (0.0-1.0); MONOCYTES % (AUTO) 8.1 %; NEUTROPHILS # (AUTO) 8.5 10^3/uL (1.5-6.6); NEUTROPHILS % (AUTO) 77.9 %; PLT - PLATELET COUNT 220 10^3/uL (130-450); RED BLOOD COUNT 3.51 10^6/uL (4.20-5.40); RED CELL DISTRIBUTION WIDTH 13.9 % (12.0-15.0); WHITE BLOOD COUNT 10.9 x10^3/uL (4.8-10.8)
[2025-02-05] MEDS: PIPERACILLIN/TAZOBACTAM 3.375 GM in SODIUM CHLORIDE 0.9% MINIBAG 100 ML IV SCH (05:51)
[2025-02-05 06:02] LABS: ALBUMIN 3.6 g/dL (3.2-5.5); ALBUMIN/GLOBULIN RATIO 1.1 (1.0-2.2); BILIRUBIN,TOTAL 0.8 mg/dL (0.2-1.0); CALCIUM 9.1 mg/dL (8.5-10.3); CREATININE 0.8 mg/dL (0.6-1.3); MAGNESIUM 1.3 mg/dL (1.7-2.3); POTASSIUM 3.7 mmol/L (3.5-4.5); TOTAL PROTEIN 6.8 g/dL (6.4-8.9)
--- NOTE | 2025-02-05 06:16 | HISTORY & PHYSICAL EXAMINATION ---
Chief Complaint Chief Complaint Chief Complaint: weakness, fall, confusion History of Present Illness History of Present Illness HPI Comment/Other: details obtained from discussion with ed staff and pt's daughter. pt with h/o dementia and currently with ams. per shubham, she came downstairs earlier this evening and saw pt on the floor, with her pants soiled in urine. pt was unable to describe nature of fall, but denied hitting her head. per daughter, pt was wake but confused. daughter states that pt has been getting more confused over past several days. she ambulates with walker. pt has also had loose stools recently, without blood or mucous. no hematuria. no chest pain. no reported fevers or chills. no seizures. Review of Systems Status of ROS: unobtainable due to mental status PFSH Active Problems All Active Problems (Updated 02/05/25 @ 01:48 by Haley Perez RN) Diverticulitis (Acute) Leukocytosis (Acute) Weakness (Acute) Acute alteration in mental status (Acute) MICHELLE (acute kidney injury) (Acute) Fall at home (Acute) Dementia (Acute) Dehydration (Acute) Left hip pain (Acute) Acute renal insufficiency (Acute) Hyponatremia (Acute) Acute pain (Acute) Hip osteoarthritis (Chronic) Back pain (Chronic) Hypertension (Chronic) Medical History Medical History (Updated 02/05/25 @ 01:48 by Haley Perez RN) On anticoagulant therapy Social History Social History Smoking Status: Former smoker If you are a former smoker, when did you quit? (Date/Year): 1979 Second hand tobacco smoke exposure: No Do you dip or chew tobacco?: No Do you vape?: No Patient requests smoking cessation consult: No Initiate information on smoking cessation: No Living arrangement: At home Living Condition: With family Relationship: Child Level: Assisted Home Mobility Equipment: Walker Do you feel safe in your home environment?: Yes Suffered physical, verbal, emotional, or financial abuse?: No History of Abuse: No Substance Use: denies use POLST Patient has POLST: No POLST Status: DNR Meds/Allgy Home Medications Ambulatory Orders Medication Instructions Recorded Confirmed meloxicam 7.5 mg tablet 7.5 mg PO BID PRN Pain #20 t abs 02/05/22 02/09/22 aspirin 81 mg chewable tablet 81 mg PO DAILY 02/07/22 02/09/22 carvedilol 12.5 mg tablet 12.5 mg PO BID 02/07/2201/30 clopidogrel 75 mg tablet 75 mg PO DAILY 02/07/2201/30 famotidine 20 mg tablet 20 mg PO DAILY PRN Heartburn 02/07/22 02/09/22 gabapentin 100 mg capsule 100 mg PO TID PRN hip pain # 30 caps 02/07/22 02/09/22 lisinopril 40 mg tablet (Zestril) 40 mg PO DAILY 02/0702/09/22 egcfemaljger-rffmyxtb-eurd 1 tab PO DAILY 02/07/2208/23 fumarate 19 mg-folic acid 400 mcg tablet (Therapeutic-M) oxycodone-acetaminophen 5 mg-325 1 - 2 ea PO Q6H PRN p ain #20 tabs 02/07/22 02/09/22 mg tablet (Percocet) pantoprazole 40 mg granules 1 tab PO DAILY 02/07/22 delayed-release for susp in packet (Protonix) methocarbamol 500 mg tablet 500 mg PO TID PRN Pain 09/2202/10/22 Allergies Allergies Allergy/AdvReac Type Severity Reaction Status Date / Time soy Allergy Unknown Verified 02/04/25 15:48 Exam Exam Vital Signs: Vital Signs x48h Temp Pulse Pulse Resp BP BP Pulse Ox 02/05/25 05:17 36.8 C 112 H 20 147/74 H 96 02/04/25 23:47 36.9 C 84 20 159/70 H 96 02/04/25 22:39 77 20 136/69 H 98 Constitutional no apparent distress tired, sleepy HENMT normocephalic and head/scalp atraumatic dry mucosae Eyes EOMs intact bilaterally Neck/C-Spine visual inspection normal Respiratory no retractions and no use of accessory muscles details per ed charting Cardiovascular details per ed charting Gastrointestinal deferred d/t pt discomfort Conclusion/Plan Problem List (1) Diverticulitis: (2) Weakness: (3) Acute alteration in mental status: Lab Results 02/05/25 05:24 02/05/25 05:24 Other Other Results/Comments: pt with - diverticulitis zosyn, ivf stool studies supportive meds - toxic, metabolic encephalopathy no focal deficits on top of chronic dementia ct head NEG exacerbated d/t above haldol x 1 dose given d/t agitation --> monitor - debility with recent fall --> trauma w/u negative would benefit from pt eval and tx exacerbated d/t above - hyperglycemia d/t present situation no reported h/o t2dm check a1c, lipid, tsh f/u labs, cultures, neuro status replete electrolytes further orders per clinical course
[2025-02-05] MEDS: LACTOBACILLUS RHAMNOSUS GG CAPSULE PO SCH (08:36)
[2025-02-05] MEDS: MULTIVITAMIN W/MINERALS TABLET PO SCH (08:36)
[2025-02-05] MEDS: CLOPIDOGREL 75 MG TABLET PO SCH (08:36)
[2025-02-05] MEDS: ASPIRIN CHEW 81 MG TABLET PO SCH (08:36)
[2025-02-05] MEDS: lisinopriL 20 MG TABLET PO SCH (08:36)
[2025-02-05] MEDS: carvediloL 12.5 MG TABLET PO SCH (08:37)
[2025-02-05] MEDS: INSULIN LISPRO 300 UNIT/3 ML PEN SUBQ SCH (08:37)
[2025-02-05] MEDS: PANTOPRAZOLE 40 MG TABLET PO SCH (08:37)
[2025-02-05] MEDS: ASCORBIC ACID 500 MG TABLET PO SCH (08:37)
[2025-02-05] MEDS: MORPHINE 10 MG/ML VIAL IVP PRN (11:04)
[2025-02-05 12:04] LABS: ESTIMATED AVERAGE GLUCOSE 146 mg/dL (70-100); HEMOGLOBIN A1c% 6.7 % (4.27-6.07)
[2025-02-05] MEDS ORDERED: polyethylene glycoL 3350 17 GM PACKET PO PRN (12:52)
--- NOTE | 2025-02-05 13:42 | PHARMACY PROGRESS NOTE ---
Best Possible Medication History Admit Date and Time: 02/04/25 2313 Home Medications Medication Instructions Recorded Confirmed Type aspirin 81 mg chewable tablet 81 mg PO DAILY 02/07/22 02/05/25 History clopidogrel 75 mg tablet 75 mg PO DAILY 02/07/2204/25 History lisinopril 40 mg tablet (Zestril) 40 mg PO DAILY 02/0702/05/25 History rzhepbosfxai-cudnfzon-bggv 1 tab PO DAILY 02/07/2204/25 History fumarate 19 mg-folic acid 400 mcg tablet (Therapeutic-M) oxycodone-acetaminophen 5 mg-325 1 - 2 ea PO Q6H PRN p ain #20 tabs 02/07/22 02/05/25 Rx mg tablet (Percocet) methocarbamol 500 mg tablet 500 mg PO TID PRN Pain 09/2202/10/22 History atorvastatin 10 mg tablet 10 mg PO QPM 02/05/25 History metformin 1,000 mg tablet 1,000 mg PO BID 02/05/2504/25 History metoprolol succinate 50 mg 50 mg PO DAILY 02/05/2504/25 History tablet,extended release 24 hr pantoprazole 40 mg tablet,delayed 40 mg PO DAILY 02/0502/05/25 History release Processed by: Pharmacy Medications reviewed in ED?: No Medication History completed: Yes Patient Interview: Pt unable to participate Secondary Source(s): Other family member (Patient's daughter) and Insurance records [facility] Statement: As the person ultimately responsible for medication therapy, providers are able to order a medication from an existing home medication list in [facility] via the "Reconcile Routine" prior to Confirmation of that medication by community support associate. Such practice is discouraged except when the physician, in their clinical judgment, deems that a medical need exists for a medication without regard to previous use.
[2025-02-05] MEDS: MAGNESIUM OXIDE 400 MG TABLET PO SCH (14:22)
--- NOTE | 2025-02-05 16:06 | PT Plan of Care ---
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 Cleared for PT eval. Pt's dtr in room and reports pt lives with her in multilevel home and normally ambulates with FWW. There are stairs but pt does not have to climb stairs daily. Pt is normally Jai for mobility and ADLs. Dtr assists with IADLs. Upon PT eval, pt is somnolent but able to rouse for participation in brief mobility assessment. Currently requires modA for transfers and STS c FWW. Unable to ambulate d/t weakness, confusion, and somnolence . Plan to progress mobility assessment and gait during next session as appropriate. Given above impairments pt may benefit from continued skilled PT to progress mobility and restore PLOF . When medically clear, PT rec dc to SNF as pt is far below reported baseline. Goals Improve bed mobility to: Modified Independent Improve supine to sit to: Contact Guard Improve sit to stand to: Contact Guard Improve pivot transfer ability Contact Guard to: Improve sit to supine to: Contact Guard Improve gait ability to: CGA Assistive Device Used: Front Wheeled Walker PT Plan of Care Frequency 1-2x/day Duration Until goals are met Discharge Recommendations Discharge Location Nursing Home Facility DC Equipment Recommended Front wheeled walker Transport Needs at Discharge B.L.S Other BLS d/t confusion, unable to sit unsupported
--- NOTE | 2025-02-05 16:57 | ED Physician Documentation ---
ED Addendum Addendum Addendum: awaiting callback from hospitalist at time of shift change. Call returned soon after and I gave verbal report and indications for hospitalization. Hospitalist will assess patient. Disposition: admit to hospital, stable Diagnoses: acute diverticulitis general weakness confusion leukocytosis Discharge Plan Discharge Patient Disposition: [facility] DC/Xfer Condition: Stable Clinical Impression: Acute alteration in mental status, Weakness, Diverticulitis Leukocytosis Qualifiers: Leukocytosis type: unspecified Qualified Code(s): D72.829 - Elevated white blood cell count, unspecified Interventions: ED Admission Assessment Last Done: 02/04/25 23:32
[2025-02-05] MEDS ORDERED: OLANZapine 10 MG VIAL IM PRN (20:48)
[2025-02-05] MEDS: traZODone 50 MG TABLET PO SCH (22:31)
[2025-02-05] MEDS: MELATONIN 3 MG TABLET PO PRN (22:31)
[2025-02-05] MEDS: ATORVASTATIN 10 MG TABLET PO SCH (22:31)
[2025-02-05] MEDS: METOPROLOL TARTRATE 25 MG TABLET PO SCH (22:31)
[2025-02-06] MEDS: METOPROLOL 5 MG/5 ML VIAL IVP ONE (04:29)
[2025-02-06] MEDS: ONDANSETRON 4 MG/2 ML VIAL IVP PRN (04:40)
[2025-02-06] MEDS: hydrALAZINE INJ 20 MG/ML VIAL IVP ONE (05:33)
[2025-02-06] MEDS: PANTOPRAZOLE 40 MG TABLET PO SCH (06:01)
[2025-02-06] MEDS: ACETAMINOPHEN 325 MG TABLET PO PRN (08:24)
[2025-02-06] MEDS ORDERED: METOPROLOL SUCCINATE 50 MG TABLET PO SCH (09:00)
--- NOTE | 2025-02-06 13:30 | PROVIDER PROGRESS NOTE ---
Subjective Prog Note Date Prog Note Date: 02/06/25 Subjective Pt reports feeling: Improved Subjective: More alert today Current Medications Current Medications Current Medications: Current Medications Generic Name Dose Route Start Last Admin Trade Name Demian PRN Reason Stop Dose Admin Acetaminophen 650 mg 02/04/25 23:15 02/06/25 08:24 Acetaminophen 325 Mg Tablet PO 650 mg Q6H PRN Administration pain, fever Ascorbic Acid 500 mg 02/05/25 09:00 02/06/25 08:25 Ascorbic Acid 500 Mg Tablet PO 500 mg DAILY MARY BETH Administration Aspirin 81 mg 02/05/25 09:00 02/06/25 08:26 Aspirin Chew 81 Mg Tablet PO 81 mg DAILY MARY BETH Administration Atorvastatin Calcium 10 mg 02/05/25 21:00 02/05/25 22:31 Atorvastatin 10 Mg Tablet PO 10 mg QPM MARY BETH Administration Clopidogrel Bisulfate 75 mg 02/05/25 09:00 02/06/25 08:25 Clopidogrel 75 Mg Tablet PO 75 mg DAILY MARY BETH Administration Lactated Ringer's 1,000 mls @ 125 mls/hr 02/04/25 23:45 02/06/25 08:12 Lr IV 125 mls/hr .Q8H MARY BETH Administration Piperacillin Sod/Tazobactam 100 mls @ 25 mls/hr 02/05/25 02:00 02/06/25 11:32 Sod 3.375 gm/ Sodium Chloride IV 25 mls/hr Q8H MARY BETH Administration Insulin Human Lispro 1 - 5 unit 02/05/25 08:00 02/06/25 11:48 Insulin Lispro 300 Unit/3 Ml Pen SUBQ 2 unit 0800,1200,1700,2100 MARY BETH Administration Protocol Lactobacillus Rhamnosus 1 cap 02/05/25 09:00 02/06/25 08:25 Lactobacillus Rhamnosus Gg Capsule PO 1 cap DAILY MARY BETH Administration Lisinopril 40 mg 02/05/25 09:00 02/06/25 08:26 Lisinopril 20 Mg Tablet PO 40 mg DAILY MARY BETH Administration Magnesium Oxide 400 mg 02/05/25 13:00 02/06/25 08:24 Magnesium Oxide 400 Mg Tablet PO 400 mg DAILYWM MARY BETH Administration Melatonin 3 mg 02/04/25 23:15 02/05/25 22:31 Melatonin 3 Mg Tablet PO 3 mg QPM PRN Administration sleep Metoprolol Tartrate 25 mg 02/05/25 21:00 02/06/25 08:25 Metoprolol Tartrate 25 Mg Tablet PO 25 mg BID MARY BETH Administration Morphine Sulfate 2 mg 02/06/25 09:28 Morphine 2 Mg/Ml Carpuject IVP Q4H PRN Pain 7 TO 10 Multivitamins/Minerals 1 tab 02/05/25 09:00 02/06/25 08:26 Multivitamin W/Minerals Tablet PO 1 tab DAILY MARY BETH Administration Olanzapine 5 mg 02/05/25 20:48 Olanzapine 10 Mg Vial IM 02/06/25 20:47 ONCE PRN Agitation Ondansetron HCl 4 mg 02/04/25 23:15 02/06/25 04:40 Ondansetron 4 Mg/2 Ml Vial IVP 4 mg Q8H PRN Administration Nausea / Vomiting Pantoprazole Sodium 40 mg 02/06/25 07:00 02/06/25 06:01 Pantoprazole 40 Mg Tablet PO 40 mg QDAC MARY BETH Administration Polyethylene Glycol 17 gm 02/05/25 12:52 Polyethylene Glycol 3350 17 Gm Packet PO DAILY PRN Bowel Protocol Sterile Water 2.1 ml 02/05/25 20:48 Water For Injection,Sterile 10 Ml Vial MC 02/06/25 20:47 .ONCE PRN Agitation Tramadol HCl 25 mg 02/04/25 23:15 Tramadol 50 Mg Tablet PO Q8H PRN Moderate Pain (Level 4-6) Trazodone HCl 50 mg 02/05/25 21:00 02/05/25 22:31 Trazodone 50 Mg Tablet PO 50 mg QPM MARY BETH Administration Objective Vital Signs/Intake & Output Reviewed Vital Signs: Yes Vital Signs: Vital Signs x48h Temp Pulse Pulse Pulse Resp BP BP 02/06/25 09:00 36.4 C L 92 20 157/62 H 02/06/25 08:25 77 157/62 H 02/06/25 06:20 80 165/74 H 02/06/25 06:05 185/65 H 02/06/25 05:50 74 190/66 H 02/06/25 05:43 72 190/82 H 02/06/25 05:38 68 188/84 H 02/06/25 05:33 224/98 H 02/06/25 05:32 69 224/98 H Pulse Ox 02/06/25 09:00 94 02/06/25 08:25 02/06/25 06:20 02/06/25 06:05 02/06/25 05:50 02/06/25 05:43 02/06/25 05:38 02/06/25 05:33 02/06/25 05:32 Intake & Output: Intake & Output 02/03/25 02/04/25 02/05/25 02/06/25 23:59 23:59 23:59 23:59 Intake Total 1100 / 1100 2800 / 2800 2308 / 2308 Output Total 3100 / 3100 2049 Balance 1100 / 1100 -300 / -300 258 / 258 Weight (kg) 63 kg Objective General Appearance: positive No acute distress and Alert Eyes Bilateral: positive Normal inspection ENT: positive ENT inspection nml Neck: positive Nml inspection Respiratory: positive Chest non-tender Cardiovascular: positive Regular rate & rhythm and Systolic murmur Abdomen: positive Non-tender Skin: positive Color nml Extremities: positive Non-tender Neurologic/Psychiatric: positive Other (Not interactive with interview) Lab Results 02/06/25 13:38 02/06/25 13:38 Other Labs: Lab Results x24hrs 02/06/25 02/06/25 02/05/25 Range/Units 11:13 07:32 20:57 POC Whole Bld Glucose 206 198 261 (70-100) mg/dL 02/05/25 Range/Units 16:51 POC Whole Bld Glucose 111 (70-100) mg/dL Assessment/Plan Problem List (1) Diverticulitis: Impression: Today's lab work pending, we will keep her on IV Zosyn until resolution of leukocytosis Continue IVF She seems to be tolerating a diet a little bit better. There was some concern raised by nursing overnight, reports of spitting up versus vomiting. I believe that this was just spitting up food because she did not like the taste and she has pretty severe dementia Pure diet, thin liquids, meds crushed in pudding (2) Acute alteration in mental status: Impression: Mentation likely worsened by infectious process Manage diverticulitis as above I ordered a trazodone last night as family is reporting ongoing sleep disturbances. I believe she would have some improved quality if she were able to sleep at night. I instructed nursing and family at bedside to keep the blinds open and the lights on during the day to encourage her sleeping at night and we will continue her trazodone nightly as well as a as needed Zyprexa for agitation at night. 1730: Notified by nursing that patient is getting a bit agitated. They report that nonverbally she looks like she is in pain but she denies pain. I instructed them to try the as needed morphine to see if pain is driving her agitation (3) Weakness: Impression: PT consulted, they recommend SNF. Working on placement
[2025-02-06 13:45] LABS: HGB - HEMOGLOBIN 10.6 g/dL (12.0-16.0); MEAN CORPUSCULAR HEMOGLOBIN 30.6 pg (27.0-31.0); MEAN CORPUSCULAR HGB CONC 32.1 g/dL (32.0-36.0); MEAN CORPUSCULAR VOLUME 95.4 fL (81.0-99.0); MEAN PLATELET VOLUME 10.2 fL (7.9-10.8); RED BLOOD COUNT 3.46 10^6/uL (4.20-5.40); RED CELL DISTRIBUTION WIDTH 13.6 % (12.0-15.0); WHITE BLOOD COUNT 9.9 x10^3/uL (4.8-10.8)
[2025-02-06 13:59] LABS: CALCIUM 8.7 mg/dL (8.5-10.3); CREATININE 0.8 mg/dL (0.6-1.3); POTASSIUM 3.6 mmol/L (3.5-4.5)
[2025-02-06] MEDS ORDERED: ACETAMINOPHEN 160 MG/5 ML SUSP UDC PO PRN (17:13)
[2025-02-06] MEDS: MORPHINE 2 MG/ML CARPUJECT IVP PRN (17:36)
[2025-02-07] MEDS: traMADol 50 MG TABLET PO PRN (03:10)
[2025-02-07 06:12] LABS: BASOPHILS # (AUTO) 0.1 10^3/uL (0.0-0.1); BASOPHILS % (AUTO) 0.5 %; EOSINOPHILS # (AUTO) 0.1 10^3/uL (0.0-0.7); EOSINOPHILS % (AUTO) 1.4 %; HGB - HEMOGLOBIN 10.9 g/dL (12.0-16.0); LYMPHOCYTES # (AUTO) 1.8 10^3/uL (1.5-3.5); LYMPHOCYTES % (AUTO) 18.6 %; MEAN CORPUSCULAR HEMOGLOBIN 30.4 pg (27.0-31.0); MEAN CORPUSCULAR HGB CONC 32.1 g/dL (32.0-36.0); MEAN PLATELET VOLUME 10.2 fL (7.9-10.8); MONOCYTES # (AUTO) 0.7 10^3/uL (0.0-1.0); NEUTROPHILS # (AUTO) 6.8 10^3/uL (1.5-6.6); PLT - PLATELET COUNT 233 10^3/uL (130-450); RED BLOOD COUNT 3.58 10^6/uL (4.20-5.40); RED CELL DISTRIBUTION WIDTH 13.3 % (12.0-15.0); WHITE BLOOD COUNT 9.5 x10^3/uL (4.8-10.8)
[2025-02-07 06:35] LABS: CALCIUM 8.9 mg/dL (8.5-10.3); CREATININE 0.9 mg/dL (0.6-1.3); POTASSIUM 3.5 mmol/L (3.5-4.5)
[2025-02-07] MEDS: MULTIVITAMIN W/IRON, MINERALS 15 ML PO SCH (08:20)
[2025-02-07] MEDS: AMOX/CLAV 875 MG/125 MG TABLET PO SCH (10:21)
[2025-02-07] MEDS: CHERRY SYRUP 10 ML UDC PO PRN (10:21)
--- NOTE | 2025-02-07 13:45 | Discharge Summary ---
Discharge Summary Admit Date: 02/05/25 Discharge Date: 02/07/25 Discharging Provider: Xander Albrecht NP Code Status: Attempt Resuscitation DIAGNOSES Admission Diagnoses: Diverticulitis Toxic metabolic encephalopathy Fall Debility Discharge Diagnoses with Status of Each Condition: Diverticulitisimproving Toxic metabolic encephalopathyimproving, likely delirium from infection exacerbating dementia Falldischarging to SNF Debilitydischarging to SNF HPI History of Present Illness: details obtained from discussion with ed staff and pt's daughter. pt with h/o dementia and currently with ams. per shubham, she came downstairs earlier this evening and saw pt on the floor, with her pants soiled in urine. pt was unable to describe nature of fall, but denied hitting her head. per daughter, pt was wake but confused. daughter states that pt has been getting more confused over past several days. she ambulates with walker. pt has also had loose stools recently, without blood or mucous. no hematuria. no chest pain. no reported fevers or chills. no seizures. HOSPITAL COURSE Hospital Course: Patient was admitted into the hospital and started on IV antibiotics. She was evaluated by physical therapy, who recommended SNF placement. Her white blood cell count has improved to normal. She has had some issues with hypertension off and on during the hospitalization, but she was also agitated during many of those times of hypertension and has had normal blood pressures charted at some times. Will defer further management of hypertension to primary care. Having some swallowing difficulty due to dementia. She will spit out bland food. She also spits out pills. She was evaluated by speech therapy, who recommended that meds be crushed and mixed in a butterfield syrup, and she has done well with that. She is being discharged to SNF to finish out a course of Augmentin. She had some episodes of agitation and hallucinations at night, this has improved now that her infection is improving. I also started her on her trazodone to help with sleep duration and efficiency. Further management of sleep disturbances secondary to dementia/delirium per primary care. May benefit from Sarah psych consult when the acute infectious process is cleared ALLERGIES Allergies Allergy/AdvReac Type Severity Reaction Status Date / Time soy Allergy Unknown Verified 02/04/25 15:48 MEDICATIONS Ambulatory Orders Medication Instructions Recorded Confirmed aspirin 81 mg chewable tablet 81 mg PO DAILY 02/07/22 02/05/25 clopidogrel 75 mg tablet 75 mg PO DAILY 02/07/22 05/04/25 lisinopril 40 mg tablet (Zestril) 40 mg PO DAILY 02/0702/05/25 [id number] 1 tab PO DAILY 02/07/2204/25 fumarate 19 mg-folic acid 400 mcg tablet (Therapeutic-M) oxycodone-acetaminophen 5 mg-325 1 - 2 ea PO Q6H PRN p ain #20 tabs 02/07/22 02/05/25 mg tablet (Percocet) methocarbamol 500 mg tablet 500 mg PO TID PRN Pain 09/2202/10/22 atorvastatin 10 mg tablet 10 mg PO QPM 02/05/25 metformin 1,000 mg tablet 1,000 mg PO BID 02/05/2504/25 metoprolol succinate 50 mg 50 mg PO DAILY 02/05/2504/25 tablet,extended release 24 hr pantoprazole 40 mg tablet,delayed 40 mg PO DAILY 02/0502/05/25 release amoxicillin 875 mg-potassium 1 tab PO Q8HR 5 days #15 tabs 02/07/25 clavulanate 125 mg tablet trazodone 50 mg tablet 50 mg PO QPM 30 days #30 tab s 02/07/25 PHYSICAL EXAM AT DISCHARGE Vital Signs: Vital Signs x48h Temp Pulse Resp BP Pulse Ox 02/07/25 15:20 36.6 C 99 18 144/77 H 96 02/07/25 11:25 36.3 C L 70 20 181/95 H 95 General Appearance: positive No acute distress and Alert Eyes Bilateral: positive Normal inspection ENT: positive ENT inspection nml Neck: positive Nml inspection Respiratory: positive Chest non-tender Cardiovascular: positive Irregularly irregular Peripheral Pulses: positive 2+ Abdomen: positive Non-tender Back: positive Nml inspection Skin: positive Color nml Extremities: positive Non-tender Neurologic/Psychiatric: positive Other (Pleasantly confused, moves all extremities) LABS 02/07/25 05:37 02/07/25 05:37 FOLLOW UP Follow Up: With PCP TIME SPENT Time Spent in Discharge (Minutes): 40 Discharge Plan Discharge Patient Disposition: [facility] DC/Xfer Condition: Stable Medically Cleared Date:: 02/07/25 Prescriptions: New trazodone 50 mg Tablet 50 mg PO QPM 30 Days Qty: 30 0RF amoxicillin-pot clavulanate 875-125 mg Tablet 1 tab PO Q8HR 5 Days Qty: 15 0RF Continued clopidogrel 75 MG tablet 75 mg PO DAILY aspirin 81 MG tablet,chewable 81 mg PO DAILY lisinopril [Zestril] 40 MG tablet 40 mg PO DAILY Therapeutic-M 1 TAB tablet 1 tab PO DAILY oxycodone-acetaminophen [Percocet] 1 EACH tablet 1 - 2 ea PO Q6H PRN (Reason: pain) Qty: 20 0RF methocarbamol 500 MG tablet 500 mg PO TID PRN (Reason: Pain) Patient Comments: 1 tablet by mouth three times a day atorvastatin 10 mg tablet 10 mg PO QPM metoprolol succinate 50 mg tablet extended release 24 hr 50 mg PO DAILY pantoprazole 40 mg tablet,delayed release (DR/EC) 40 mg PO DAILY metformin 1,000 mg tablet 1,000 mg PO BID Activity Restrictions: Activity as Tolerated Diet: Soft Health Concerns: You came into the hospital with altered mental status and diverticulitis. You were held in the hospital and received IV antibiotics, which improved your symptoms. You were evaluated by physical therapy, who recommended that you be placed in a facility for at least a short time. I am ordering more antibiotics for you to take by mouth. Please take as directed until the bottle is empty. I am also writing you for a trazodone, which is a sleep aid. I believe that you will have some improved quality of life if you are able to sleep efficiently at night and stay awake during the day. Please avoid daytime naps is much as possible, and get as much sunlight during the day as you can and sleep and a muchdarkness as you can tolerate. Please follow-up with your primary care provider. Please seek medical attention if you have any worsening abdominal pain, fevers. Print Language: Wolof Patient Instructions: Diverticulitis Dc Stand Alone Forms: SNF Discharge, PCP List Follow-up Care: Jaxon Camacho MD [Primary Care Provider] -
[2025-02-07 15:22] VITALS: BP 144/77; TEMP 97.9; O2SAT 96
== END 2025-02-07 17:05 | DRG 391 ==
LOC: ED 15:17 → MS2 23:13
PROVIDERS: ADMIT Student in an Organized Health Care Education/Training Program; ATTEND Student in an Organized Health Care Education/Training Program
DX: Z79.02 Long term (current) use of antithrombotics/antiplatelets; Z79.82 Long term (current) use of aspirin; R53.1 Weakness; F03.90 Unspecified dementia, unspecified severity, without behavioral disturbance, psychotic disturbance, mood disturbance, and anxiety; R53.81 Other malaise; M25.511 Pain in right shoulder; Z79.84 Long term (current) use of oral hypoglycemic drugs; I10 Essential (primary) hypertension; K57.32 Diverticulitis of large intestine without perforation or abscess without bleeding; G92.8 Other toxic encephalopathy; F03.92 Unspecified dementia, unspecified severity, with psychotic disturbance; S09.90XA Unspecified injury of head, initial encounter; W19.XXXA Unspecified fall, initial encounter; R41.82 Altered mental status, unspecified; D72.829 Elevated white blood cell count, unspecified; Z79.899 Other long term (current) drug therapy